=== PATIENT | female | born 1935 | race Caucasian/White ===

== ENCOUNTER 2017-07-31 21:33 | Emergency (ER) | payer MEDICARE, OTHER ==
[~2017-07-31] VITALS: Ht 154.9 cm; Wt 69.4 kg
[~2017-07-31 21:33] MED LIST: ACIDOPHILUS1 EAC4 PO; ALPHAGAN P10 ML OP; AMBIEN PO; ASPIRIN325 PO; B COMPLEX1 EACH PO; CALCIUM AND MA1 EACH PO; CATAPRES; CATAPRES-TTS 10.1 MG TD; CLONIDINE0.1 PO; COMBIGAN EYE DR10 ML OPHTHALMIC; COQ-10100 MG PO; DIOVAN320 MG PO; FOLIC ACID1 MG PO; IMDUR 30 MG TAB30 M1 PO; IMDUR 60 MG TAB60 M1 PO; INVOKANA300 MG PO; LANTUS100 UNIT/M SUBQ; LASIX 20 MG TAB20 MG PO; LASIX 40 MG TAB40 M2 PO; LEVOFLOXACIN750 MG PO; LIPITOR 20 MG T20 M1 PO; LIPITOR10 MG PO; MECLIZINE HCL25 M1 PO; MULTIVITAMINS PO; NASACORT10.8 ML NASAL; NASONEX17 GM NASAL; NASONEX17 GM NS; NITROQUICK0.4 MG SL; NITROSTAT0.4 M1 PO; NORVASC 5 MG TAB5 MG PO; NOVOLOG100 UNIT/1 SUBQ; OSELB75 PO; PATADAY2.5 ML OPHTHALMIC; PLAVIX 75 MG TA75 MG PO; PROAIR HFA8.5 GM INH; REISHI MUSHROOM PO; SINGULAIR 10 MG10 M1 PO; TESSALON PERLE100 MG PO; TOPROL XL50 MG PO; XALATAN2.5 ML OP; XALATAN2.5 ML OPHTHALMIC; ZOCOR80 MG PO; ZYRTEC10 M2 PO; ZYRTEC10 MG PO
[2017-07-31] MEDS ORDERED: CARVEDILOL12.5 MG (21:43)
[2017-07-31] MEDS ORDERED: ASPIR 8181 MG (21:52)
[2017-07-31] MEDS ORDERED: POTASSIUM20 (21:53)
[2017-07-31] MEDS ORDERED: FLONASE 0.05%50 MCG (21:54)
[2017-07-31] MEDS ORDERED: FOSAMAX 70 MG T70 MG (21:56)
[2017-07-31] MEDS ORDERED: CRESTOR20 MG (21:57)
[2017-07-31] MEDS ORDERED: HYDROCODONE-AP1 EAC6 PO (22:42)
[2017-07-31 23:04] VITALS: BP 164/71
== END 2017-07-31 23:06 | disposition home or self-care (01) ==
LOC: M.ERS 21:33
DX: S99.921A Unspecified injury of right foot, initial encounter (principal); E11.9 Type 2 diabetes mellitus without complications; I25.2 Old myocardial infarction; M19.90 Unspecified osteoarthritis, unspecified site; I11.0 Hypertensive heart disease with heart failure; I50.9 Heart failure, unspecified; Z95.1 Presence of aortocoronary bypass graft; X58.XXXA Exposure to other specified factors, initial encounter; Y93.89 Activity, other specified; Y92.89 Other specified places as the place of occurrence of the external cause; Y99.8 Other external cause status

== ENCOUNTER 2018-07-02 18:49 | Inpatient (IN) | payer MEDICARE, OTHER ==
[~2018-07-02] VITALS: Ht 154.9 cm; Wt 64.4 kg
--- NOTE | ~2018-07-02 | CON ---
[address] [address] CONSULTATION Name: JAH MEEHAN Room: [address] IN M.R.#: [id number] Admission: 07/02/18 Attend Phys: Clyde Thibodeaux MD Discharge: Date of : 35 Report #: [id number] THIS REPORT FOR: //name// CC: Clyde Morales jhony DATE OF SERVICE: 07/18/2018 CONSULTATION: Infectious diseases. The patient is an 83-year-old white female admitted to [facility] on 07/02/2018 complaining of fever and chest pain. She was noted to have a temperature of 38.2 and pyuria. It is notable that the patient had just been discharged the day previous after his being in [facility] for 4 days for "kidney damage." The patient was discharged, developed a chest pain and was admitted. After admission, the patient was diagnosed with urinary tract infection, aspiration pneumonia that went into ARDS. The patient had a non-ST elevation myocardial infarction with shock. After coming to the hospital, the patient's medical condition deteriorated to the point where she required intubation for mechanical ventilation on 07/08/2018. Dialysis with CRRT was initiated. The patient was noted to be in brynn shock. She had been on Zosyn from the day of admission, 07/02/2018 until the day of her deterioration, 07/08/2018. Therapy was then changed to cefepime plus Flagyl and she has been on that medication since 07/08/2018. The patient also was on Zyvox from 07/08/2018 to 07/13/2018. Infectious disease consultation was requested now to recommend further antibiotic therapy if necessary. PAST MEDICAL HISTORY: Significant for diabetes with hypertension, coronary artery disease, congestive heart failure. PAST SURGICAL HISTORY: The patient has had coronary artery bypass grafting and has a pacemaker. ALLERGIES: THE PATIENT'S CHART NOTES ALLERGY TO AZITHROMYCIN AND SULFA. MEDICATION RECONCILIATION: The patient's current medication list is as follows: Potassium chloride 40 mEq q.2h. p.o. p.r.n., ondansetron 4 mg q. 6 IV p.r.n. nausea, metoclopramide 10 mg q. 8 IV push, carvedilol 3.125 mg b.i.d., metronidazole 500 mg IV t.i.d., aspirin 81 mg p.o. daily, amiodarone 400 mg p.o. b.i.d., pantoprazole 40 mg IV b.i.d., cefepime 1 g IV b.i.d.; magnesium, phosphorus and potassium p.r.n. her blood levels. The patient is on sliding scale insulin. The patient currently is on norepinephrine drip, fentanyl drip and propofol drip. She receives ipratropium, albuterol aerosol 3 mL [place] [address] CONSULTATION Name: JAH MEEHAN Room: [address]#: [id number] Admission: 07/02/18 Attend Phys: Clyde Thibodeaux MD Discharge: Date of : 35 Report #: [id number] SOCIAL HISTORY: The patient is . No history of tobacco, alcohol nor drugs. REVIEW OF SYSTEMS: Unavailable as the patient is sedated on a ventilator. PHYSICAL EXAMINATION: GENERAL: The patient appears her stated age, sedated and not responsive, but appearing comfortable, not in any distress. VITAL SIGNS: Show the patient has been afebrile throughout this hospitalization. SKIN: Somewhat sallow, but without rash, lesion or exanthem. HEENT: Shows some wasting in the temporal area. Pupils are equal and reactive, in mid position. NECK: Has no adenopathy. Endotracheal and nasogastric tubes appear to be in position. HEART: Heart sounds S1, S2, without murmur. CHEST: Breath sounds are clear to anterior auscultation. A sternotomy scar appears well healed in the midline. ABDOMEN: Belly is soft and appears somewhat distended. The patient had a fecal management system with liquid stool. EXTREMITIES: Unremarkable. LABORATORY DATA: The white count has gone from 9.8 to 19.8. The hemoglobin was 7.0, transfused and 9.0, now is back down to 7.9 with hematocrit 23%, platelets 86,000. Electrolytes are normal. BUN 54, creatinine 2.3, on dialysis. Liver function tests showed the alkaline phosphatase is nearly normal at 118. The SGOT went up to 3968 and the patient had an episode of shock around 07/08/2018, it is now down to 22. SGPT has gone from 244 to 166. The BNP is 21,152. The chest x-ray shows increasing infiltrates. In summary, we have a patient with significant comorbidities who presents with chest pain and fever. She developed myocardial infarction with probable cardiogenic shock as well as pneumonia and possible sepsis. She now is on antibiotics after 16 days. Cultures throughout this time have been negative. At this time, the patient continues to be critically ill. Her white count has just gone up. Her chest x-ray appears to have increasing infiltrates, so this does not seem to be like a propitious time to discontinue antibiotic therapy. She is on broad coverage with cefepime and Flagyl and had been on Zyvox, which would have covered MRSA. At this time, I suggest we continue the current antibiotic with cefepime and Flagyl. I would like to do a few additional diagnostic studies including a sputum culture, respiratory viral panel, influenza antigen, pneumococcal and Legionella antigen, histoplasmosis urinary antigen. [place] [address] CONSULTATION Name: SHEFALIJAHMALISSA REEDE Room: [address] IN [facility]#: [id number] Admission: 07/02/18 Attend Phys: Clyde Thibodeaux MD Discharge: Date of : 35 Report #: [id number] an HIV because of the progressive infiltrates not responding to antimicrobial therapy. I would like to look for markers of sepsis including lactate and procalcitonin. With liquid stool, I want to check a C. difficile toxin, and also check a lipase. For now, I will continue the patient on intensive antibiotic therapies as we await results of these diagnostic studies. Dr. Tarango will return after the weekend for followup infectious disease care. Thank you for this consultation. By: [id number] 1925Jonathan Muñiz MD /roberto
[~2018-07-02 18:49] MED LIST changes: +ASPIR 8181 MG PO; +CARVEDILOL12.5 MG; +CRESTOR20 MG; +FLONASE 0.05%50 MCG; +FOSAMAX 70 MG T70 MG; +HYDROCODONE-AP1 EAC6 PO; +POTASSIUM20
[2018-07-02 18:53] VITALS: BP 175/47
[2018-07-02] MEDS ORDERED: ASPIR 8181 M1 PO (19:08)
[2018-07-02] MEDS ORDERED: AMLODIPINE BESY10 MG PO (19:08)
[2018-07-02] MEDS ORDERED: CILOSTAZOL 100100 M1 PO (19:09)
[2018-07-02] MEDS ORDERED: TUMS PO (19:09)
[2018-07-02] MEDS ORDERED: IRON325 PO (19:10)
[2018-07-02] MEDS ORDERED: COMBIGAN EYE DR10 ML OPHTHALMIC (19:10)
[2018-07-02] MEDS ORDERED: FLONASE 0.05%50 MCG NASAL (19:10)
[2018-07-02] MEDS ORDERED: FOLIC ACID1 MG PO (19:11)
[2018-07-02] MEDS ORDERED: FUROSEMIDE 40 M40 M1 PO (19:11)
[2018-07-02] MEDS ORDERED: NOVOLOG100 UNIT/1 SUBQ (19:12)
[2018-07-02] MEDS ORDERED: NOVOLOG FL100 UNIT/M (19:13)
[2018-07-02] MEDS ORDERED: ATROVENT HFA14 GM INH (19:14)
[2018-07-02] MEDS ORDERED: LANTUS SUBQ (19:14)
[2018-07-02] MEDS ORDERED: LUMIGAN2.5 M1 OP (19:15)
[2018-07-02] MEDS ORDERED: SINGULAIR 10 MG10 M1 PO (19:16)
[2018-07-02] MEDS ORDERED: METOLAZONE 2.52.5 MG PO (19:16)
[2018-07-02] MEDS ORDERED: TOPROL XL100 MG PO (19:16)
[2018-07-02] MEDS ORDERED: ONDANSETRON HCL4 M2 PO (19:17)
[2018-07-02] MEDS ORDERED: NITROGLYCERIN0.4 MG SUBLING (19:17)
[2018-07-02] MEDS ORDERED: CRESTOR20 MG PO (19:18)
[2018-07-02] MEDS ORDERED: PATADAY2.5 ML OP (19:18)
[2018-07-02] MEDS ORDERED: SODIUM CHLORIDE (19:20)
[2018-07-02] MEDS ORDERED: MULTI VITAMIN1 EACH PO (19:21)
[2018-07-02] MEDS ORDERED: DIOVAN160 MG PO (19:22)
[2018-07-02] MEDS ORDERED: VITAMIN B-12500 MCG PO (19:22)
[2018-07-02] MEDS ORDERED: VITAMIN B COMPLEX PO (19:23)
[2018-07-02 19:36] LABS: ABSOLUTE BASOPHILS 0.2 thou/uL (0.0-0.2); ABSOLUTE EOSINOPHILS 0.2 thou/uL (0.0-0.7); ABSOLUTE LYMPHOCYTES 1.5 thou/uL (0.8-5.3); ABSOLUTE MONOCYTES 0.7 thou/uL (0.0-1.2); ABSOLUTE NEUTROPHILS 10.2 thou/uL (1.6-8.1); BASOPHILS 1.3 %; EOSINOPHILS 1.6 %; HEMATOCRIT 37.6 % (37.0-47.0); HEMOGLOBIN 12.8 gm/dL (12.0-15.0); LYMPHOCYTES 11.4 %; MCH 30.6 pg (26.0-34.0); MCHC 33.9 g/dL (28.0-37.0); MCV 90.2 fL (80.0-100.0); MONOCYTES 5.7 %; MPV 8.6 fl. (7.2-11.1); NUCLEATED RBCS 0 /100WBC; PLATELET COUNT* 235 thou/uL (150-400); RBC 4.17 mil/uL (4.20-5.00); RDW-CV 13.3 % (10.5-14.5); WBC 12.8 thou/uL (4.0-11.0)
[2018-07-02 19:44] LABS: ANION GAP 1 mmol/L (7-16); BUN 48 mg/dL (7-18); CALCIUM 9.6 mg/dL (8.5-10.1); CHLORIDE 103 mmol/L (98-107); CO2 28 mmol/L (21-32); CREATININE 2.1 mg/dL (0.6-1.3); GLUCOSE 182 mg/dL (70-99); POTASSIUM 3.6 mmol/L (3.5-5.1); SODIUM 132 mmol/L (136-145)
[2018-07-02 19:53] LABS: INFLUENZA A ANTIGEN None Detected (None Detect); INFLUENZA B ANTIGEN None Detected (None Detect)
[2018-07-02 19:55] LABS: APTT 27.7 Seconds (25.0-31.3); INR 0.9; PROTIME 9.7 Seconds (9.20-11.50)
[2018-07-02 19:59] LABS: URINE BILIRUBIN NEGATIVE (Negative); URINE BLOOD 1+ (Negative); URINE CLARITY HAZY; URINE COLOR YELLOW; URINE GLUCOSE-RANDOM 1+ (Negative); URINE KETONES NEGATIVE (Negative); URINE LEUKOCYTES-REFLEX TRACE (Negative); URINE NITRITE-REFLEX NEGATIVE (Negative); URINE PROTEIN 2+ (Negative); URINE UROBILINOGEN 0.2 E.U./dl (0.2-1.0)
[2018-07-02 20:03] LABS: ALBUMIN 3.6 g/dL (3.4-5.0); ALKALINE PHOSPHATASE 46 U/L (46-116); CK-MB MASS 2.5 ng/mL (<0.5-3.6); LIPASE 182 U/L (73-393); NT-PRO BRAIN NAT PEPTIDE 1933 pg/mL (<300); SGOT 19 U/L (15-37); SGPT 23 U/L (30-65); TOTAL BILIRUBIN 0.4 mg/dL (<0.1-1.0); TROPONIN-I LEVEL <0.06 ng/mL (<0.06)
[2018-07-02 20:15] LABS: CASTS None Seen /LPF (None Seen); CRYSTALS None Seen /LPF (None Seen); MUCUS 0-3 Light strn/LPF (None Seen); SQUAMOUS 4-10 Moderate /LPF (0-3); URINE RBC 3-10 Few /HPF (0-2); URINE WBC-REFLEX 6-15 Few /HPF (0-5)
[2018-07-02 21:24] VITALS: BP 179/53
[2018-07-02 22:00] VITALS: BP 157/56
[2018-07-03] VITALS (7 sets, daily range): BP systolic 123–172; BP diastolic 34–90
--- NOTE | 2018-07-03 03:12 | NUR ---
83. Y/O FEMALE ADMITTED TO ROOM 204 WITH AN ADMITTING DIAGNOSIS OF UTI, FEVER. PT IS AFEBRILE UPON ARRIVAL. VSS. TRACING SR WITH FIRTST DEGREE BLOCK ON MONITOR. PT WAS DISCHARGED ON 07/02 IN THE A.M. FOR [facility] WHERE SHE WAS ADMITTED FOR RENAL INSUFFICEINCY. REFER TO CHARTING. HOURLY ROUNDING IN PLACE FOR PT SAFETY. FALL PRECAUTIONS IN PLACE. CLWR.
--- NOTE | 2018-07-03 08:26 | NUR ---
ASSUMED CARE OF PT AT 0730. PT RESTING IN BED. PT A&0X4, DENIES ANY PAIN OR SHORTNESS OF BREATH AT THIS TIME. PT TRACING SR WITH BBB AND OCCASIONAL PAC'S ON THE YARD SPECIALIST. PT ON 2L NC SAT 94%. PT STATES SHE ONLY WEARS OXYGEN AT NIGHT AT HOME. PT UP AD SHERRILL IN ROOM. PT GOAL FOR TODAY IS TO REMAIN AFEBRILE, IV ABX AND PAIN MGMT. AM ASSESSMENT CHARTED. MEDICATIONS PER JUL. PT REPOSITIONS SELF,. HOURLY ROUNDING OBSERVED. BED IN LOW POSITION. CALL LIGHT WITHIN REACH. WILL CONTINUE PLAN OF CARE.
--- NOTE | 2018-07-03 17:30 | NUR ---
NO ACUTE CHANGES THROUGHOUT SHIFT. REFER TO CHARTING. PT SLOWLY PROGRESSING TOWARDS GOALS. PT COMPLAINED OF PAIN TO RIGHT SHOULDER. TREATED WITH PRN TYLENOL WITH PARTIAL RELIEF. PT REMAINED AFEBRILE THROUGHOUT SHIFT. PT 02 SAT 88% ON RA THIS AFTERNOON- PT PLACED ON 2L NC SAT 93%. PT DENIES ANY SHORTNESS OF BREATH. PT CONTINUES TO TRACE SR WITH BBB AND OCCASIONAL PAC'S ON THE ELECTRIC MOTORMAN. IVF. PT UP SBA TO BATHROOM. HOME MEDICATIONS RECONCILED AND RESTARTED. REFER TO EMAR. PT REPOSITIONS SELF WITH REMINDERS. HOURLY ROUNDING OBSERVED. BED IN LOW POSITION. CALL LIGHT WITHIN REACH. WILL CONTINUE PLAN OF CARE.
[2018-07-04] VITALS: BP 124/41
--- NOTE | 2018-07-04 03:09 | NUR ---
PT ALERT ORIENTED. UP TO BR WITH STAND BY ASSIST BC OF IV. TELEMETRY SHOWS SR. O2 AT 3 LITERS. INITALLY DENIED PAIN BUT LATER IN THE SHIFT STATED R SHOULDER PAIN. TYLENOL GIVEN. PT SLEEPING.
[2018-07-04 04:00] VITALS: BP 115/36
[2018-07-04 08:00] VITALS: BP 135/35
--- NOTE | 2018-07-04 10:30 | NUR ---
ASSUMED CARE OF PT AT 0730. PT RESTING IN CHAIR WAITING FOR BREAKFAST. PT A&0X4. DENIES ANY PAIN OR SHORTNESS OF BREATH AT THIS TIME. UPON ASSESSMENT, PT ON RA SAT 85%, PT PLACED ON 2L NC SAT UP TO 94%. PT STATES SHE HAD DIARRHEA EARLY THIS MORNING. NO EPISODES SINCE. WILL MONITOR CLOSELY. PT TRACING SR WITH BBB AND OCCASIONAL PAC'S ON THE PLAYROOM ATTENDANT. IVF. PT UP SBA TO BATHROOM. PT GOAL FOR TODAY IS TO BE SEEN BY NEPHROLOGY, PAIN MGMT AND REPLACE POTASSIUM AND MAGNESIUM PER ELECTROLYTE PROTOCOL AND REMAIN FREE FROM DIARRHEA. AM ASSESSMENT CHARTED. MEDICATIONS PER JUL. PT REPOSITIONS SELF WITH REMINDERS. HOURLY ROUNDING OBSERVED. BED IN LOW POSITION. CALL LIGHT WITHIN REACH. WILL CONTINUE PLAN OF CARE.
[2018-07-04 12:00] VITALS: BP 118/41
[2018-07-04 15:15] VITALS: BP 110/36
--- NOTE | 2018-07-04 17:26 | NUR ---
NO ACUTE CHANGES THROUGHOUT SHIFT. REFER TO CHARTING. PT SEEN BY NEPHROLOGY. ORDERS RECEIVED FOR RENAL ULTRASOUND, CHECK URINE RESIDUAL AND MEDICATION CHANGES. DIURETICS DC'D AT THIS TIME. PVR COMPLETED WITH LESS THAN 15ML IN BLADDER. PT CONTINUES TO RECEIVE IVF. POTASSIUM AND MAGNESIUM REPLACED PER ELECTROLYTE PROTOCOL. PT HERE AT BEDSIDE THIS AFTERNOON AND UPDATED ON CURRENT PLAN OF CARE. PT CONTINUES TO TRACE SR WITH BBB AND OCCASIONAL PVC'S ON THE STORE MERCHANDISER. ON 2L NC SAT UPPER 90'S. PT DENIES ANY SHORTNESS OF BREATH. PT COMPLAINED OF PAIN TO RIGHT SHOULDER, TREATED WITH PRN TYLENOL WITH RELIEF. PT UP SBA TO BATHROOM. MEDICATIONS PER JUL. PT REPOSITIONS SELF. HOURLY ROUNDING OBSERVED. BED IN LOW POSITION. CALL LIGHT WITHIN REACH. WILL CONTINUE PLAN OF CARE.
[2018-07-04 20:20] VITALS: BP 130/68
[2018-07-05] VITALS: BP 143/40
--- NOTE | 2018-07-05 03:46 | NUR ---
PT CARE ASSUMED AT 1930. SAT DECREASED TO 89%, TITRATED TO 6L HFNC. ALERT AND ORIENTED X4. CALL LIGHT WITHIN REACH AND BED IN LOW POSITION. SOB WITH EXERTION. PT DROPPER DOWN TO 69%, KEPT HER ON NRB MASK, RESPIRATION LABORED, INFORMED RESPITORY. PT SAID FELT COMFORTABLE TO MASK AND WANTS TO SIT ON THE MASK FOR A WHILE. C/O PAIN, MEDICATION GIVEN PER EMAR.
[2018-07-05 04:00] VITALS: BP 117/46
[2018-07-05 07:54] VITALS: BP 139/41
--- NOTE | 2018-07-05 10:58 | EKG ---
[place] [address] ELECTROCARDIOGRAM REPORT Name: JAH MEEHAN Room: [address] ADM IN M.R.#: [id number] Admission: 07/02/18 Attend Phys: Clyde Thibodeaux MD Discharge: Date of : 35 Report #: [id number] THIS REPORT FOR: //name// [facility] ED Test Date: 2018-07-02 Test Time: 18:45:37 Pat Name: JAH MEEHAN Department: Room: [facility] Gender: F Fabric Cutter: JOSE CARLOS : 1935 Requested By: Husam Sharma Order Number: [id number] MD: Jonathan Melendez Measurements Intervals [place] Rate: 83 P: 0 MI: 218 QRS: -29 QRSD: 147 T: 123 QT: 406 QTc: 477 Interpretive Statements Sinus rhythm Ventricular premature complex Borderline prolonged MI interval Left bundle branch block No previous ECG available for comparison Electronically Signed On 07-05-2018 10:58:28 RENAL TECHNICIAN by Jonathan Melendez [email or web address] <ELECTRONICALLY SIGNED> By: Jonathan Melendez MD, [facility] 07/05/18 1058 1845 1845 Jonathan Melendez MD, FACC /EPI
[2018-07-05 12:16] VITALS: BP 129/28
--- NOTE | 2018-07-05 14:28 | NUR ---
Pt is A&O. Resides at home with her . Independent with IADLS. Pt continues to assist with cooking, but has a cleaning person that comes every [address]. drives short distances, but Pt stated that he is undergoing chemo, so doesn't do a lot of driving. Pt and have a restorationist member that does most of their driving. Pt wears home o2 at [facility] provided by [facility]. Hx of , does not recall the name of the agency. Hx of skilled at [facility] Pt stated that [place] CM asked nurse to obtain therapy orders. CM faxed initial referral to [facility]. Pt stated that her dtr and JESSICA plan on moving to the area from the [facility] to live with Pt and , to assist with cares. Following.
[2018-07-05 16:00] VITALS: BP 124/50
--- NOTE | 2018-07-05 18:23 | NUR ---
PT BECAME SOA WHILE SITTING IN BED THIS AFTERNOON. PT COUGHING AND SPITTING UP SMALL AMOUNT OF SPUTUM FREQUENTLY. PT APPEARED ANXIOUS. O2 SAT 85 10L O2 HFNC. O2 TITRATED UP AND PT GUIDED THROUGH BREATHING. SAT RECOVERED INTO MID 90S AFTER SEVERAL MINUTES. PT DENIES SOA AND COUGH SINCE. LUNGS DIM THROUGHOUT. FAMILY AT BEDSIDE TODAY. PT CURRENTLY DENIES C/O. PT ABLE TO MAKE NEEDS KNOWN, CALL LIGHT IN REACH
[2018-07-05 19:00] VITALS: BP 135/49
[2018-07-06] VITALS: BP 132/48
[2018-07-06 03:50] VITALS: BP 116/49
--- NOTE | 2018-07-06 04:58 | NUR ---
PT ASSESSMENT COMPLETED CHARTED. PT HAS BREATHING HAS BECOME MORE LABORED T/O THIS SHIFT. AT APPROXIMATELY 0105 RT PLACED PT ON BIPAP, PT TAKEN OFF AT 0313 PER PT REQUEST AND PLACED ON NRB AT 15LPM WITH O2 SATS AT 91%. PT HR INCREASED AT THIS TIME AND AGAIN BECAME MORE LABORED. PT PLACED BACK ON BIPAP AT 0430. PT CURRENTLY RESTING COMFORTABLY AT THIS TIME. PT ALSO BECAME FEBRILE EARLIER IN THIS SHIFT, SALO AFEBRILE. TRACING SR-ST WITH BBB,1ST DEGREE BLOCK, PAC'S, AND PVC'S. PT C/O RIGHT SHOULDER PAIN. PRN TYLENOL GIVEN FOR PAIN AND FEVER. MUSEUM CURATOR PHYSICIAN NOTIFIED WITH NO RESPONSE. HOURLY ROUNDING FOR PT SAFETY. CLWR.
[2018-07-06 05:51] LABS: CALCIUM 8.3 mg/dL (8.5-10.1); CREATININE 2.7 mg/dL (0.6-1.3); POTASSIUM 3.2 mmol/L (3.5-5.1)
[2018-07-06 08:00] VITALS: BP 124/96
--- NOTE | 2018-07-06 09:40 | NUR ---
ASSUMED CARE OF PT AT 0730. PT RESTING IN BED. PT A&0X4, DENIES ANY PAIN AT THIS TIME. PT ON BIPAP UPON ASSESSMENT SAT 97%. PT PLACED ON 15 L HIGHFLOW NC FOR MEALS. LUNG SOUNDS DIMINISHED. DR CANADA HERE TO SEE PT. ORDERS RECEIVED FOR PULMONARY CONSULT AND ECHO TODAY. PT TRACING SR WITH BBB AND PVC'S ON THE CYBER SECURITY. PACEMAKER NOTED. PT UP SBA TO BSC. PT GOAL FOR TODAY IS STRICT I/O, TITRATE OXYGEN, PULM TO SEE PT, REPLACE POTASSIUM PER ELECTROLYTE PROTOCOL, ECHO AND REMAIN AFEBRILE. AM ASSESSMENT CHARTED. MEDICATIONS PER JUL. PT REPOSITIONS SELF. HOURLY ROUNDING OBSERVED. BED IN LOW POSITION. CALL LIGHT WITHIN REACH. WILL CONTINUE PLAN OF CARE.
--- NOTE | 2018-07-06 09:48 | EKG ---
[place] [address] ELECTROCARDIOGRAM REPORT Name: JAH MEEHAN Room: [address] ADM IN M.R.#: [id number] Admission: 07/02/18 Attend Phys: Clyde Thibodeaux MD Discharge: Date of : 35 Report #: [id number] THIS REPORT FOR: //name// [facility] Test Date: 2018-07-06 Test Time: 04:21:50 Pat Name: JAH MEEHAN Department: Room: [address] Gender: F Internet Sales Representative: MJ : 1935 Requested By: Clyde Thibodeaux Order Number: [id number] Reading MD: Presley Wong Measurements Intervals [place] Rate: 120 P: 55 [place]: 162 QRS: 44 QRSD: 148 T: 162 QT: 326 QTc: 461 Interpretive Statements Sinus tachycardia Multiple premature complexes, vent & supraven Left bundle branch block Baseline wander in lead(s) II,III,aVL,aVF,V1,V3,V5,V6 Compared to ECG 07/02/2018 18:45:37 Sinus rhythm no longer present Ventricular premature complex(es) no longer present Electronically Signed On 07-06-2018 9:48:11 OIL SPRAYING MACHINE OPERATOR by Presley Wong [email or web address] <ELECTRONICALLY SIGNED> By: Presley Wong MD, [facility] 07/06/18 0948 0 0 Presley Wong MD, [facility] /EPI
[2018-07-06 11:07] LABS: HEMATOCRIT 29.3 % (37.0-47.0); MCH 30.8 pg (26.0-34.0); MCV 90.6 fL (80.0-100.0); MPV 9.2 fl. (7.2-11.1); NUCLEATED RBCS 0 /100WBC; PLATELET COUNT* 233 thou/uL (150-400); RBC 3.24 mil/uL (4.20-5.00); RDW-CV 13.4 % (10.5-14.5); WBC 13.4 thou/uL (4.0-11.0)
[2018-07-06 11:45] LABS: ABSOLUTE LYMPHOCYTES 0.7 thou/uL (0.8-5.3); ABSOLUTE MONOCYTES 0.7 thou/uL (0.0-1.2); ABSOLUTE NEUTROPHILS 12.1 thou/uL (1.6-8.1); PLATELET ESTIMATE ADEQUATE
[2018-07-06 11:46] LABS: ANISOCYTOSIS 1+; POIKILOCYTOSIS 1+
[2018-07-06 12:03] VITALS: BP 117/36
--- NOTE | 2018-07-06 12:36 | 2DMMODE ---
[place] [address] 2 D/M-MODE ECHOCARDIOGRAM Name: JAH MEEHAN Room: [address] IN [facility]#: [id number] Admission: 07/02/18 Attend Phys: Clyde Thibodeaux, Discharge: Date of : 35 Date of Service: 07/06/18 1236 Report #: [id number] THIS REPORT FOR: //name// APPROVED REPORT Study performed: 07/06/2018 10:49:39 EXAM: Comprehensive 2D, Doppler, and color-flow Echocardiogram Patient Location: In-Patient Room #: 204 Status: routine BSA: 1.81 HR: 91 bpm BP: 124/96 mmHg Rhythm: NSR Other Information Study Quality: Good Indications Congestive Heart Failure Fever 2D Dimensions IVSd: 11.28 (7-11mm) LVOT Diam: 19.27 (18-24mm) LVDd: 46.67 mm PWd: 10.84 (7-11mm) Ascending Ao: 26.10 (22-36mm) LVDs: 29.28 (25-40mm) Aortic Root: 25.73 mm Volumes Left Atrial Volume (Systole) LA ESV Index: 23.20 mL/m2 Aortic Valve AoV Peak Dani.: 1.82 m/s AO Peak Gr.: 13.18 mmHg LVOT Max P.51 mmHg AO Mean Gr.: 7.90 mmHg LVOT Mean P.94 mmHg LVOT Max V: 0.94 m/s AO V2 VTI: 39.67 cm LVOT Mean V: 0.65 m/s RELL (VTI): 1.53 cm2 LVOT V1 VTI: 20.74 cm Mitral Valve E/A Ratio: 1.47 MV Decel. Time: 211.34 [place] [address] 2 D/M-MODE ECHOCARDIOGRAM Name: JAH MEEHAN Room: [address] IN [facility].#: [id number] Admission: 07/02/18 Attend Phys: Clyde Thibodeaux, Discharge: Date of : 35 Date of Service: 07/06/18 1236 Report #: [id number] MV E Max Dani.: 1.29 m/s MV PHT: 61.29 ms MVA (PHT): 3.59 cm2 Pulmonary Valve PV Peak Dani.: 1.30 m/s PV Peak Gr.: 6.75 mmHg Tricuspid Valve RAP Estimate: 5.00 mmHg TR Peak Gr.: 39.00 mmHg RVSP: 44.00 mmHg PA Pressure: 44.00 mmHg Left Ventricle The left ventricle is normal size. There is normal LV segmental wall motion. Paradoxical septal motion consistent with conduction abnormality. There is normal left ventricular wall thickness. Left ventricular systolic function is normal. The left ventricular ejection fraction is within the normal range. LVEF is 60-65%. The left ventricular diastolic function is normal. Right Ventricle The right ventricle is normal size. The right ventricular systolic function is normal. Pacemaker lead is present in the right ventricle. Atria The left atrium size is normal. The right atrium size is normal. Aortic Valve Mild aortic valve sclerosis. No aortic regurgitation is present. Mild aortic stenosis.mean gradient 8mmHg Mitral Valve There is mitral annular calcification. Mild to moderate mitral regurgitation. No evidence of mitral valve stenosis. Tricuspid Valve The tricuspid valve is normal in structure. Mild to moderate tricuspid regurgitation. Moderate pulmonary hypertension. Pulmonic Valve The pulmonary valve is normal in structure. Mild pulmonic regurgitation. Great Vessels The aortic root is normal in size. IVC [place] [address] 2 D/M-MODE ECHOCARDIOGRAM Name: JAH MEEHAN Room: [address] IN [facility]#: [id number] Admission: 07/02/18 Attend Phys: Clyde Thibodeaux, Discharge: Date of : 35 Date of Service: 07/06/18 1236 Report #: [id number] collapses >50% with inspiration. Pericardium There is no pericardial effusion. <Conclusion> LVEF is 60-65%. There is normal LV segmental wall motion. Paradoxical septal motion consistent with conduction abnormality. Mild aortic stenosis.mean gradient 8mmHg No aortic regurgitation is present. No evidence of mitral valve stenosis. Mild to moderate mitral regurgitation. Mild to moderate tricuspid regurgitation. Moderate pulmonary hypertension. <ELECTRONICALLY SIGNED> By: Presley Wong MD, FACC 07/06/18 1236 1236 1236 Presley Wong MD, FACC /INF
[2018-07-06 16:16] VITALS: BP 113/43
--- NOTE | 2018-07-06 17:41 | NUR ---
NO ACUTE CHANGES THROUGHOUT SHIFT. REFER TO CHARTING. PT REMAINED ON BIPAP THROUGHOUT SHIFT. PT PLACED ON HIGH FLOW NC DURING MEALS AND WHEN UP TO BSC. PT NOT PROGRESSING TOWARDS GOALS. PULM SEEN PT. ORDERS RECEIVED FOR CXR AND ABG IN AM. REFER TO RESULTS OF CXR. POTASSIUM REPLACED PER ELECTROLYTE PROTOCOL. REFER TO EMAR. PT GIVEN ONE TIME DOSE OF LASIX IVP. ECHO COMPLETED. REFER TO RESULTS. PT AND FAMILY AT BEDSIDE THROUGHOUT SHIFT. PT DENIES ANY PAIN THROUGHOUT AFTERNOON. PT CONTINUES TO TRACE SR/ST WITH PVC'S AND BBB ON THE CISCO NETWORK ARCHITECT. PT UP SBA TO BATHROOM. STRICT I/O IN PLACE. MEDICATONS PER JUL. PT REPOSITIONS SELF. HOURLY ROUNDING OBSERVED. BED IN LOW POSITION. CALL LIGHT WITHIN REACH. WILL CONTINUE PLAN OF CARE.
[2018-07-06 20:00] VITALS: BP 128/43
[2018-07-07] VITALS: BP 113/38
[2018-07-07 04:00] VITALS: BP 144/57
--- NOTE | 2018-07-07 04:54 | NUR ---
ASSUMED CARE OF PT AFTER REPORT AT 1930. PT A&OX4. VSS. PHYSICAL ASSESSMENT COMPLETED AND CHARTED. PT ON BIPAP WITH 96% [address]/BBB/PAC/PVC/AV PACED ON TELE. PT UP STANDBY TO RESTROOM. PT COMPLAINED OF CHRONIC SHOULDER PAIN-PAIN MEDS GIVEN PER JUL. PT RESTED WELL ON BED. CALL LIGHT WITHIN REACH. BED IN LOW POSITION. BED ALARM ON.
[2018-07-07 05:20] LABS: ABSOLUTE BASOPHILS 0.1 thou/uL (0.0-0.2); ABSOLUTE EOSINOPHILS 0.2 thou/uL (0.0-0.7); ABSOLUTE MONOCYTES 0.6 thou/uL (0.0-1.2); ABSOLUTE NEUTROPHILS 7.2 thou/uL (1.6-8.1); BASOPHILS 0.7 %; EOSINOPHILS 1.7 %; HEMATOCRIT 25.1 % (37.0-47.0); HEMOGLOBIN 8.7 gm/dL (12.0-15.0); LYMPHOCYTES 10.9 %; MCH 31.5 pg (26.0-34.0); MCHC 34.7 g/dL (28.0-37.0); MCV 90.8 fL (80.0-100.0); MPV 8.7 fl. (7.2-11.1); NUCLEATED RBCS 0 /100WBC; PLATELET COUNT* 221 thou/uL (150-400); POLYS 79.7 %; RBC 2.76 mil/uL (4.20-5.00); RDW-CV 13.5 % (10.5-14.5)
[2018-07-07 05:39] LABS: ALBUMIN 2.2 g/dL (3.4-5.0); CALCIUM 8.3 mg/dL (8.5-10.1); CREATININE 2.8 mg/dL (0.6-1.3); POTASSIUM 3.9 mmol/L (3.5-5.1); TOTAL BILIRUBIN 0.5 mg/dL (<0.1-1.0)
[2018-07-07 08:07] VITALS: BP 138/43
--- NOTE | 2018-07-07 09:17 | NUR ---
ASSUMED CARE OF PT THIS AM AROUND 07- BLOW UP OPERATOR IN PLACE ORDERED, TRACING ST/AV PACED WITH OCCASSIONAL PVC/PAC- UPON ASSESSMENT PT NOTED TO BE RESTING IN BED, ON BIPAP- PT A&O X4- CONTINENT OF BOWEL AND BLADDER- ASSIST X1 WITH TRANSFERS- COURSE LUNG SOUNDS, DYSPNEA NOTED ON EXERTION- VSS, 02 SAT 99% ON BIPAP- NON-PRODUCTIVE COUGH NOTED- ABD SOFT/ROUND/NON-TENDER, BS X4 QUADS- LAST BM REPORTED THIS AM- IV NOTED TO RIGHT AC INTACT, AND SL- TRACE EDEMA NOTED TO BLE- SLIGHT RIGHT HAND SWEALING NOTED- FAIR PO INTAKE NOTED THIS AM WITH BREAKFAST, BS MONITORED ORDERED, INSULIN PRESCIBED- CHRONIC RIGHT SHOULDER PAIN REPORTED 10/25 THIS AM, REPOSITIONING IN PLACE- CALL LIGHT AND PERSONAL BELONGINGS WITH IN REACH- HOURLY ROUND IN PLACE R/T SAFETY/NEEDS- PT MAKES NEEDS KNOWN- ALL NEEDS MET AT THIS TIME-WCTM
[2018-07-07 11:23] LABS: BE -2.1 mmol/L (-2 to +3); PCO2 32.2 mmHg (35.0-45.0); PO2 61.4 mmHg (75.0-100.0); pH 7.442 (7.340-7.450)
--- NOTE | 2018-07-07 11:33 | CON ---
[address] [address] CONSULTATION Name: JAH MEEHAN Room: [address] IN M.R.#: [id number] Admission: 07/02/18 Attend Phys: Clyde Thibodeaux MD Discharge: Date of : 35 Report #: [id number] THIS REPORT FOR: //name// CC: Noe Avery MD DATE OF SERVICE: 07/06/2018 ATTENDING PHYSICIAN: Noe Diop MD. INDICATION FOR CONSULTATION: Acute hypoxic respiratory failure, fluid overload versus pneumonia. CLINICAL SUMMARY: The patient is an 83-year-old female essentially a nonsmoker who smoked during high school who was admitted with chest pain and low-grade fever. She was just discharged from [facility] on 07/01/2018. She had acute kidney infection with some renal failure and had some constant chest pain at that time. Chest pain was radiating. She has a previous pacemaker and had coronary artery bypass grafting by Dr. Nacho Morin in 2011 at [facility] for coronary artery disease. The patient has a history of some congestive heart failure. Her creatinine has gone up. She has been receiving IV fluids for the last 3-4 days and had decreasing urine output. Creatinine went up from 2.1, then went up to 3.7, now is back down to 2.7 at this time. She did receive one dose of IV Lasix last night when she was on 50% BiPAP and her sats seemed to have improved. If not, she was on 12-14 liters high flow cannula. She is normally on oxygen 2 liters at night at home. She has done this for the last 4 or 5 years because of a history of obstructive sleep apnea, states she saw some in our group for it. She tried CPAP briefly for a month or two about 5 or 6 years ago. She could not tolerate it and then stopped it. She still has some loud snoring, restless sleep and some daytime hypersomnolence. I talked with Dr. Karthik Bejarano, Dr. Diop and Dr. Dorado thinking she may need dialysis if she does not improve. Chest x-ray shows some lower lobe infiltrates and CHF. PAST MEDICAL HISTORY: Multiple, she has a history of hypertension, acute on chronic kidney injury and chronic kidney disease. She had a breast biopsy in the past, I believe, was benign. Also, diabetes mellitus with peripheral vascular disease, had a pacemaker for bradycardia, coronary artery disease as noted in the past. Also, hypertension. OUTPATIENT MEDICATIONS: Include amlodipine 10 mg daily, Pletal 100 mg b.i.d. for coronary artery disease, Lasix, furosemide 40 mg p.o. daily, sliding scale insulin, Atrovent HFA 1 puff q.i.d., metolazone 2.5 mg daily, metoprolol 50 mg daily, montelukast 10 mg every bedtime and Zofran 4 mg p.o. every [address] [place] [address] CONSULTATION Name: JAH MEEHAN CASTRO Room: [address] IN ..#: [id number] Admission: 07/02/18 Attend Phys: Clyde Thibodeaux MD Discharge: Date of : 35 Report #: [id number] nausea. ALLERGIES: SHE HAS ALLERGIES OR INTOLERANCE TO SULFA, LISINOPRIL, MORPHINE AND THEN PROTONIX, WHICH GIVES HER NAUSEA. SULFA, WHICH ALSO GIVES HER NAUSEA AND TRAMADOL, WHICH GIVES HER NAUSEA. FAMILY HISTORY: Negative for premature cardiopulmonary disease. SOCIAL HISTORY: The patient is a remote smoker, smoked for 4 or 5 pack years back when she was in high school and college and then quit after that. She may have smoked a pack a week according to her and her and she is and currently lives with her who seems involved with her care. Denies any alcohol or illicit drug use. REVIEW OF SYSTEMS: A 14-point review of systems reviewed and negative except for pertinent positives noted in HPI. PHYSICAL EXAMINATION: GENERAL: An 83-year-old female on BiPAP. She can talk to me in half sentences. She seems to be more alert and awake and less dyspneic on the BiPAP. VITAL SIGNS: Blood pressure is 117/46, heart rate is 90, respirations were 16-20 and temperature is 36.9 degrees. She is 5 feet 3 inches tall, weight 81 kilograms or BMI is 34, saturation on 15 liters was 96% on 50% BiPAP 14/8 with a backup rate of 14, she is 94%. HEENT: Mucous membranes are moist. Mild increase in jugular venous pressure. CHEST: Reveals bibasilar crackles. CARDIOVASCULAR: Regular rate and rhythm without murmur, gallop or rub. Heart rate is 90. No S3 is noted. ABDOMEN: Soft, without masses or megaly. EXTREMITIES: She has some edema of her right arm greater than her left arm and her lower extremities, she has no edema. LABORATORY DATA: From 07/06/2018 shows hemoglobin is 10, white count 13,400, MCV is 90 and platelets are 233,000. Sodium is 138, potassium 3.2, being repleted, chloride is 103, anion gap 14, BUN is 37, creatinine is 2.7, which is coming down somewhat, and GFR is 17, calcium is 8.3. Anti-proBNP is initially 18,000, now 21,152. Prealbumin is low at 13.6. Echocardiogram shows pulmonary artery hypertension with PA systolic of about 57 mmHg and then an EF of 50%. Chest x-ray shows fluid overload again lower lobe infiltrates. It should be noted that those papers were from a right heart catheterization done in 2016 at [facility] on their old records that just came over here from [facility]. I do not have a recent echo on her. I do not have the sleep study she states that was done at [facility] either. IMPRESSION: [place] [address] CONSULTATION Name: JAH MEEHAN Room: [address] ADM IN .R.#: [id number] Admission: 07/02/18 Attend Phys: Clyde Thibodeaux MD Discharge: Date of : 35 Report #: [id number] 1. Dyspnea, multifactorial. 2. Fluid overload. 3. Minimal chronic obstructive pulmonary disease. 4. Urinary tract infection. 5. Coronary artery disease with previous coronary artery bypass grafting. 6. Chronic kidney disease. Again, with fluid overload. PLAN: I agree with diuresis. We will keep her on the BiPAP at night and oxygen during the day. We will see how her chest x-ray clears up. If she does not clear up, she may need dialysis. Other workup would include a noncontrast CT of the chest and then reevaluation. I do not think she needs bronchoscopy at this time. May need full PFTs and also a repeat echocardiogram at some point in time to see if she has persistent pulmonary hypertension. I think it could be related to her untreated obstructive sleep apnea. She still has loud snoring and restless sleep and takes naps during the afternoon according to her and it appears she takes 1 or 2-hour naps. Not certain whether a BiPAP machine or oral appliance or Inspire would be helpful or useful to her. Repeat evaluation may be indicated. We could also end up doing an outpatient PFTs. I do not think she has much in the way of obstructive lung disease with her nonsmoking history at least at this time. Agree with diuresis at this time. We will follow up on a chest x-ray and see how she progresses in the meantime. We will follow up with blood gas on her in the morning and make sure that is stable. Thanks again for allowing us to participate in this lady's care. We will follow up along with you while she is in the hospital. <ELECTRONICALLY SIGNED> By: Eugenio Vee MD 07/07/18 1133 1234 [id number] Boo MD /nt
[2018-07-07 12:00] VITALS: BP 127/49
[2018-07-07 16:00] VITALS: BP 123/41
--- NOTE | 2018-07-07 16:21 | NUR ---
PT CURRENTLY RESTING IN BED, EYES CLOSED; FAMILY AT SIDE- FRUIT VENDOR IN PLACE ORDERED, TRACING ST/AV PACED WITH OCCASSIONAL PVC/PAC NOTED- IV TO RIGHT FA INTACT AND SL- FAIR PO INTAKE NOTED THIS SHIFT WITH MEALS- BS MONITORED ORDERED, SSI PRESCIBED- BIPAP IN PLACE ORDERED, BREAK WITH MEALS WITH O2 AT 12L VIA HF NC-LEFT THORACENTESIS ORDERED THIS SHIFT PER PULMONARY, WITH FLUID COLLECTION TO BE SENT FOR TESTING THIS SHIFT- US REPORTS TO NOT BE ABLE TO COMPLETE TODAY; PLANNED FOR 07/08/18- US BLE ORDERED AND COMPLETED THIS SHIFT WITH RESULTS NOTED TO BE NEGATIVE FOR DVT- BLADDER SCAN COMPLETED THIS SHIFT ORDERED, PVR AT 1000 NOTED TO BE 10CC- AROUND 1430 PT NOTED TO HAVE HR FLUCTUATING 130-150 WITH LABORED BREATHING/ANXIETY NOTED-CRACKLES NOTED OT BASES- 1X 40MG DOSE OF LASIX NOTED AND GIVEN-ORDERS OBTAINED FOR XANAX 0.25MG Q6 PRN FOR ANXIETY AND GIVEN AT 1440-BREATHING TX GIVEN PRESCIBED- [place] [address], UPDATED WITH NO NEW ORDERS RECIEVIED AT THIS TIME- MEDICATION NOTED TO BE EFFECTIVE PT NOW RESTING IN BED WITH EYES CLOSED- BIPAP IN PLACE, RESP EVEN AND UN-LABORED AT THIS TIME- CALL LIGHT AND PERSONAL BELONGINGS WITH IN REACH- HOURLY ROUNDS CONTINUED R/T SAFETY/NEEDS- ALL NEEDS MET AT THIS TIME-[facility]
[2018-07-07 20:00] VITALS: BP 131/54
[2018-07-08] VITALS (18 sets, daily range): BP systolic 72–152; BP diastolic 30–96
--- NOTE | 2018-07-08 05:52 | NUR ---
ASSUMED CARE OF PT AFTER REPORT AT 1930. PT A&OX4. VSS. PHYSICAL ASSESSMENT COMPLETED AND CHARTED. PT ON BIPAP WITH 97% O2 SAT. PT TRACING ST/BBB/PVC/AV PACED ON TELE. PT COMPLAINED OF RIGHT SHOULDER PAIN-PAIN MEDS GIVEN PER MAR. FOR POSSIBLE THORACENTESIS TODAY. PT RESTED WELL ON BED. CALL LIGHT WITHIN REACH. BED IN LOW POSITION. BED ALARM ON.
[2018-07-08 06:25] LABS: PREALBUMIN 13.4 mg/dL (18.0-35.7)
[2018-07-08 06:26] LABS: ALBUMIN 2.1 g/dL (3.4-5.0); CALCIUM 8.2 mg/dL (8.5-10.1); CREATININE 2.6 mg/dL (0.6-1.3); POTASSIUM 3.1 mmol/L (3.5-5.1); TOTAL BILIRUBIN 0.6 mg/dL (<0.1-1.0); TOTAL PROTEIN 6.1 g/dL (6.4-8.2)
[2018-07-08 06:34] LABS: ABSOLUTE BASOPHILS 0.1 thou/uL (0.0-0.2); ABSOLUTE EOSINOPHILS 0.3 thou/uL (0.0-0.7); ABSOLUTE LYMPHOCYTES 1.2 thou/uL (0.8-5.3); ABSOLUTE MONOCYTES 0.6 thou/uL (0.0-1.2); ABSOLUTE NEUTROPHILS 6.9 thou/uL (1.6-8.1); BASOPHILS 1.1 %; EOSINOPHILS 3.3 %; HEMATOCRIT 25.7 % (37.0-47.0); HEMOGLOBIN 8.9 gm/dL (12.0-15.0); MCH 31.5 pg (26.0-34.0); MCHC 34.5 g/dL (28.0-37.0); MCV 91.2 fL (80.0-100.0); MONOCYTES 6.7 %; MPV 9.1 fl. (7.2-11.1); NUCLEATED RBCS 0 /100WBC; PLATELET COUNT* 261 thou/uL (150-400); POLYS 75.9 %; RBC 2.82 mil/uL (4.20-5.00); RDW-CV 13.8 % (10.5-14.5); WBC 9.1 thou/uL (4.0-11.0)
--- NOTE | 2018-07-08 09:44 | NUR ---
Spoke with , Pt doing better today, therapy to be ordered. Pt continues to plan to dc to [facility] [place] Following.
--- NOTE | 2018-07-08 10:45 | NUR ---
ASSUMED PT CARE REPORT RECEIVED FROM NURSE. PT IS AOX4 , ON BIPAP O2 SAT IS 93%. VSS. SA /TACHY ON GRADE AND CENTER MARKER. PT COMPLAINS OF CHEST PAIN LEVEL 6. NITRO GIVEN. TROP 0.37. CARDIO CONSULTED PER ORDER. EKG PERFOREMED SEE CHART. NITRO GIVEN PER PROTOCOL. PT PUT ON 15 L NC HIGH FLOW PREVIOUSLY ORDERED. IN ROOM. PT ATE BREAKFAST. NO THORACENTESIS SCHEDULED TODAY. MRSA, GRAM STAIN TO BE CULTURED. NO FEVER. LASIX GIVEN SCHEDULED. ACCUCHECK 90 NO INSULIN GIVEN. K BEING REPLACED PER PROTOCOL.WILL CONTINUE TO MONITOR PT
--- NOTE | 2018-07-08 12:43 | NUR ---
PT HAS CHEST PAIN AGAIN AT AROUND 1230. NITRO GIVEN. HEART RATE IN THE 160S. MANAGER MECHANICAL MAINTENANCE ANNETTE CONTACTED. AMNIODERONE DRIP TO BE STARTED. PT IS SYMPTOMATIC AND STATES SHE HAS CHEST PAIN METROPOLOL GIVEN, XANAX GIVEN, NITRO GIVEN. WILL CONTINUT TO MONITOR.
--- NOTE | 2018-07-08 13:30 | NUR ---
patient transferred from [facility] in acute respiratory distress (sats ~80%) on 50% bipap and increased to 100% bipap. [address] quezada, dr. tobar and dr troncoso aware. xray called to dr. tobar, orders received.
--- NOTE | 2018-07-08 13:44 | NUR ---
pt chest pain has not gotten better. pt respiratory rate was still in the 20s on 15 l high flow. xanax given. SBP 120s. HR 160s. AFIB on experimental plastics fabricator. BIPAP restarted. order received to transfer pt to ICU. amniderone bolus started see e jul. pt belongings gathered. in room amd is aware of transfer plan. pt was kept on BIPAP, transfered to ICU via bed. pt seems to be very anxious due to her chest pain which she says is in her neck. report given to LUKE Ohara in ICU.
--- NOTE | 2018-07-08 13:54 | NUR ---
MYLANTA NOT GIVEN. NOT AVAILABLE IN [facility]. PHARMACY NOTICED OF PT TRANSFER
[2018-07-08 14:24] LABS: BE -8.1 mmol/L (-2 to +3); PCO2 32.1 mmHg (35.0-45.0); PO2 97.2 mmHg (75.0-100.0); pH 7.335 (7.340-7.450)
--- NOTE | 2018-07-08 15:41 | NUR ---
patient improving. hr better controlled. denies chest pain. respiratory rate still elevated. Dr. Dolan rounded on patient. I notified cardiology nurse that heart rate still elevated >100. I messaged Dr. Diop an update on the patient as well as her elevated blood sugar. report given to brandie.
--- NOTE | 2018-07-08 16:30 | NUR ---
ASSUMED PATIENT CARE.
--- NOTE | 2018-07-08 18:30 | EKG ---
[place] [address] ELECTROCARDIOGRAM REPORT Name: JAH MEEHAN Room: [address] ADM IN M.R.#: [id number] Admission: 07/02/18 Attend Phys: Clyde Thibodeaux MD Discharge: Date of : 35 Report #: [id number] THIS REPORT FOR: //name// [facility] Test Date: 2018-07-08 Test Time: 10:23:58 Pat Name: JAH MEEHAN Department: Room: [facility] Gender: F Forklift Technician: HUI KIRBY : 1935 Requested By: Noe Diop Order Number: [id number] Felicita MD: Jonathan Melendez Measurements Intervals [place] Rate: 156 P: 91 VT: 123 QRS: -10 QRSD: 138 T: 128 QT: 289 QTc: 466 Interpretive Statements Atrial fibrillation with rapid response Nonspecific intraventricular conduction delay Compared to ECG 07/06/2018 04:21:50 Intraventricular conduction delay now present Sinus tachycardia no longer present Electronically Signed On 07-08-2018 18:30:25 PERFECT BINDER OPERATOR by Jonathan Melendez [email or web address] <ELECTRONICALLY SIGNED> By: Jonathan Melendez MD, [facility] 07/08/18 1830 1023 1023 Jonathan Melendez MD, [facility] /EPI
--- NOTE | 2018-07-08 20:13 | NUR ---
PT INTUBATED BY ED PHYSICIAN AT 1700. RESTRAINTS APPLIED AND SEDATED WITH PROPOFOL. PT CONVERTED TO NSR WHILE INTUBATING. CENTRAL LINE PLACED FOR CVP MANAGEMENT AND MEDICATION. PT STATED BEFORE INTUBATION THAT SHE WAS HAVING CHEST PAIN. CARDIOLOGY IS AWARE. AMIODARONE DRIP RUNNING. NO OTHER COMPLAINTS. HAS BEEN UPDATED.
[2018-07-08 20:57] LABS: BE -6.5 mmol/L (-2 to +3); PCO2 34.3 mmHg (35.0-45.0); PO2 98.3 mmHg (75.0-100.0); pH 7.342 (7.340-7.450)
[2018-07-09] VITALS (26 sets, daily range): BP systolic 80–152; BP diastolic 25–96
[2018-07-09 04:14] LABS: ALBUMIN 1.9 g/dL (3.4-5.0); CALCIUM 7.5 mg/dL (8.5-10.1); CREATININE 3.4 mg/dL (0.6-1.3); TOTAL BILIRUBIN 0.9 mg/dL (<0.1-1.0); TOTAL PROTEIN 5.4 g/dL (6.4-8.2)
--- NOTE | 2018-07-09 07:41 | NUR ---
PATIENT STABLE, LEVOPHED AND FENTANYL STARTED FOR BP SUPPORT AND COMFORT, ORDER RECEIVED TO KEEP MAP >60. AFEBRILE, SINUS RHYTHM ON AMIO GTT. OUTPUT OF 50ML FROM CATHETER. Q2 TURNS FOR SKIN INTEGRITY.
[2018-07-09 09:26] LABS: HEMATOCRIT 24.4 % (37.0-47.0); HEMOGLOBIN 8.1 gm/dL (12.0-15.0); MCH 30.9 pg (26.0-34.0); MCHC 33.2 g/dL (28.0-37.0); MPV 9.3 fl. (7.2-11.1); NUCLEATED RBCS 1 /100WBC; PLATELET COUNT* 232 thou/uL (150-400); RBC 2.63 mil/uL (4.20-5.00); WBC 8.3 thou/uL (4.0-11.0)
[2018-07-09 10:07] LABS: BE -9.8 mmol/L (-2 to +3); PCO2 34.3 mmHg (35.0-45.0); PO2 79.6 mmHg (75.0-100.0)
[2018-07-09 10:14] LABS: pH 7.286 (7.340-7.450)
[2018-07-09 10:50] LABS: ABSOLUTE BASOPHILS 0.1 thou/uL (0.0-0.2); ABSOLUTE LYMPHOCYTES 0.6 thou/uL (0.8-5.3); ABSOLUTE MONOCYTES 0.7 thou/uL (0.0-1.2); MACROCYTES 1+; PLATELET ESTIMATE ADEQUATE
--- NOTE | 2018-07-09 15:11 | 2DMMODE ---
[place] [address] 2 D/M-MODE ECHOCARDIOGRAM Name: JAH MEEHAN CASTRO Room: [facility] ADM IN R#: [id number] Admission: 07/02/18 Attend Phys: Clyde Thibodeaux, Discharge: Date of : 35 Date of Service: 07/09/18 1511 Report #: [id number] THIS REPORT FOR: //name// APPROVED REPORT Study performed: 07/09/2018 10:34:32 EXAM: Limited 2D Echocardiogram Patient Location: In-Patient Room #: [facility] Status: routine BSA: 1.79 HR: 75 bpm BP: 128/48 mmHg Rhythm: NSR Other Information Study Quality: Good Indications Dyspnea recheck LV function Left Ventricle The left ventricle is normal size. There is distal septal and distal anterior hypokinesis. There is normal left ventricular wall thickness. The left ventricular systolic function is normal. The left ventricular ejection fraction is within the normal range. LVEF is 55%. Right Ventricle The right ventricle is normal size. The right ventricular systolic function is normal. Pacemaker lead is present in the right ventricle. Atria The left atrium size is normal. The right atrium size is normal. Aortic Valve Mild aortic valve sclerosis. Mitral Valve There is mitral annular calcification. Prosthetic mitral valve appears normal. Tricuspid Valve [facility] [address] [place] [address] 2 D/M-MODE ECHOCARDIOGRAM Name: JAH MEEHAN Room: [facility] IN M.R.#: [id number] Admission: 07/02/18 Attend Phys: Clyde Thibodeaux, Discharge: Date of : 35 Date of Service: 07/09/181510 Report #: [id number] The tricuspid valve is normal in structure. Pulmonic Valve The pulmonary valve is normal in structure. Great Vessels The aortic root is normal in size. IVC is dilated and collapses >50% with inspiration. Pericardium There is no pericardial effusion. <Conclusion> The left ventricle is normal size. There is normal left ventricular wall thickness. The left ventricular systolic function is normal. The left ventricular ejection fraction is within the normal range. LVEF is 55%. The right ventricle is normal size. The left atrium size is normal. Mild aortic valve sclerosis. There is mitral annular calcification. The tricuspid valve is normal in structure. IVC is dilated and collapses >50% with inspiration. There is no pericardial effusion. There is distal septal and distal anterior hypokinesis. Pacemaker lead is present in the right ventricle. Prosthetic mitral valve appears normal. <ELECTRONICALLY SIGNED> By: Jonathan Melendze MD, [facility] 07/09/18 151 10 1511 Jonathan Melendez MD, FACC /INF
--- NOTE | 2018-07-09 15:29 | NUR ---
PT TRANSFERRED TO ICU AND INTUBATED LAST EVENING. REMAINS ON VENT. NO FAMILY HERE AT THIS TIME BUT AND FAMILY WERE HERE EARLIER. CASE MGT WILL CONTINUE TO FOLLOW.
--- NOTE | 2018-07-09 17:58 | NUR ---
REPORT RECEIVED FROM LUKE DEAL. ASSESSMENT CHARTED. FEBRILE AT 100.0. VENT. RESTRAINTS. FENTANYL AND PROPOFOL GTTS FOR SEDATION. LEVO GTT. AMIO GTT. OG TO LIS. SILVA. LOW URINE OUTPUT. ART LINE PLACED. TEMP DIALYSIS CATH PLACED. CRRT STARTED AROUND 1530. MEDS GIVEN. FAMILY UPDATED ON PLAN OF CARE.
[2018-07-09 20:30] LABS: HEMATOCRIT 25.7 % (37.0-47.0); HEMOGLOBIN 8.7 gm/dL (12.0-15.0); MCH 30.4 pg (26.0-34.0); MCHC 33.9 g/dL (28.0-37.0); MCV 89.9 fL (80.0-100.0); MPV 9.4 fl. (7.2-11.1); RBC 2.86 mil/uL (4.20-5.00); RDW-CV 13.8 % (10.5-14.5); WBC 14.1 thou/uL (4.0-11.0)
[2018-07-09 20:38] LABS: CALCIUM 7.5 mg/dL (8.5-10.1); CREATININE 2.7 mg/dL (0.6-1.3); MAGNESIUM 1.6 mg/dL (1.8-2.4); PHOSPHORUS* 3.5 mg/dL (2.5-4.9); POTASSIUM 4.1 mmol/L (3.5-5.1)
[2018-07-10] VITALS (7 sets, daily range): BP systolic 130–143; BP diastolic 33–59
--- NOTE | 2018-07-10 00:24 | NUR ---
CRRT MACHING MULTIPLE ERRORS, UNABLE TO CONTINUE ORDERED. CALLED DR OTT, UPDATED CRRT STOPPED. NEW ORDERS TO RESTART CRRT WITH SAME SETTINGS IN AM. WILL NOTIFY DIALYSIS STAFF TO UPDATE NEW ORDERS.
[2018-07-10 02:54] LABS: ABSOLUTE BASOPHILS 0.1 thou/uL (0.0-0.2); ABSOLUTE EOSINOPHILS 0.3 thou/uL (0.0-0.7); ABSOLUTE LYMPHOCYTES 0.8 thou/uL (0.8-5.3); ABSOLUTE MONOCYTES 0.5 thou/uL (0.0-1.2); EOSINOPHILS 2.4 %; HEMATOCRIT 25.1 % (37.0-47.0); HEMOGLOBIN 8.6 gm/dL (12.0-15.0); LYMPHOCYTES 6.5 %; MCH 30.9 pg (26.0-34.0); MCHC 34.1 g/dL (28.0-37.0); MCV 90.6 fL (80.0-100.0); MONOCYTES 3.6 %; MPV 9.5 fl. (7.2-11.1); NUCLEATED RBCS 1 /100WBC; PLATELET COUNT* 208 thou/uL (150-400); POLYS 86.5 %; RBC 2.78 mil/uL (4.20-5.00); WBC 12.7 thou/uL (4.0-11.0)
[2018-07-10 03:07] LABS: ALBUMIN 1.9 g/dL (3.4-5.0); CALCIUM 7.5 mg/dL (8.5-10.1); CREATININE 2.5 mg/dL (0.6-1.3); MAGNESIUM 1.8 mg/dL (1.8-2.4); POTASSIUM 3.7 mmol/L (3.5-5.1); TOTAL BILIRUBIN 0.8 mg/dL (<0.1-1.0); TOTAL PROTEIN 5.3 g/dL (6.4-8.2)
[2018-07-10 03:14] LABS: TROPONIN-I LEVEL 1.83 ng/mL (<0.06)
--- NOTE | 2018-07-10 03:15 | NUR ---
HEPARIN GTT AT 953UNITS/HR PER ORDER, VIA INFUSION PUMP. APTT 56.7. NO CHANGE IN INFUSION RATE AT THIS TIME, NEW APTT ORDERED FOR 07/11/18 AT 0300 PER HEPARIN GTT PROTOCOL. NO S/S ACTIVE BLEEDING NOTED AT THIS TIME.
--- NOTE | 2018-07-10 03:37 | NUR ---
SPOKE WITH DIALYSIS ANSWERING SERVICE, UPDATED NEW ORDER TO RESTART AND CONTINUE PREVIOUS ORDERED CRRT IN AM.
--- NOTE | 2018-07-10 03:53 | NUR ---
MITZI, RN ASSESSMENT, RETURNED CALL PLACED THROUGH ANSWERING SERVICE, VERFIED ORERS FOR AM CRRT TX.
[2018-07-10 03:55] LABS: PREALBUMIN 11.7 mg/dL (18.0-35.7)
[2018-07-10 06:19] LABS: pH 7.325 (7.340-7.450)
[2018-07-10 06:23] LABS: PO2 124.9 mmHg (75.0-100.0)
--- NOTE | 2018-07-10 06:33 | NUR ---
ASSUMED CARE OF PATIENT AT 0500. PATIENT STABLE ON VENT, VITALS WNL. PER PREVIOUS RN, CRRT DC'D DUE TO IT BEING CLOTTED, BAKING ASSISTANT AWARE, TO BE CONTINUED THIS MORNING. PTT RESULTS THERAPEUTIC, HEPARIN GTT TO BE INFUSING WITH NO CHANGE. PO2 PER ABG THIS AM 124.9, PROVIDER AWARE. Q2 TURNS FOR SKIN INTEGRITY.
[2018-07-10 09:19] LABS: CALCIUM 7.7 mg/dL (8.5-10.1); CREATININE 2.7 mg/dL (0.6-1.3); POTASSIUM 3.7 mmol/L (3.5-5.1)
--- NOTE | 2018-07-10 18:53 | NUR ---
CRRT NOT DONE TODAY AND WE WILL RE-EVALUATE MARTHA MORNING. WEANING LEVOPHED UNTILL 12MCG/MIN. FIO2 DCREASE TO 80%. ADDITION AMIODARONE PER CARDIOLOGY ORDER TODAY. URINE OUTPUT 520 IN DAY SHIFT.
[2018-07-11] VITALS (7 sets, daily range): BP systolic 90–152; BP diastolic 28–40
--- NOTE | 2018-07-11 06:14 | NUR ---
STABLE THROUGH THE NIGHT, ABLE TO COME DOWN ON FIO2 TO 70%, SPO2 93%. PTT 786.2 THIS AM, TITRATED HEPARIN GTT DOWN PER PROTOCOL. AFEBRILE, NOT CONVERTED TO NSR, ON AMIO GTT. 520 CC FROM SILVA. Q2 TURNS FOR SKIN INTEGRITY.
[2018-07-11 06:30] LABS: BE -7.3 mmol/L (-2 to +3); PCO2 34.5 mmHg (35.0-45.0); PO2 62.6 mmHg (75.0-100.0); pH 7.332 (7.340-7.450)
[2018-07-12 03:46] LABS: ALBUMIN 1.5 g/dL (3.4-5.0); CALCIUM 8.1 mg/dL (8.5-10.1); CREATININE 3.1 mg/dL (0.6-1.3); MAGNESIUM 1.9 mg/dL (1.8-2.4); PHOSPHORUS* 5.4 mg/dL (2.5-4.9); POTASSIUM 4.3 mmol/L (3.5-5.1)
[2018-07-12 05:00] VITALS: BP 138/37; BP 141/41
--- NOTE | 2018-07-12 06:24 | NUR ---
PATIENT ON LEVOPHED @ 4.8 MCG/MIN FOR MAP <60 SINCE 1930. ABLE TO TITRATE DOWN TO 2.8 MCG/MIN AT 0500 WITH MAP>60. VITALS STABLE OTHERWISE, AFEBRILE. 550CC URINE THIS AM. Q2 TURNS FOR SKIN INTEGRITY.
[2018-07-12 09:12] LABS: ALBUMIN 1.6 g/dL (3.4-5.0); DIRECT BILIRUBIN 0.4 mg/dL (<0.1-0.3); TOTAL BILIRUBIN 0.7 mg/dL (<0.1-1.0); TOTAL PROTEIN 3.8 g/dL (6.4-8.2)
[2018-07-12 09:25] LABS: BE -7.4 mmol/L (-2 to +3); PCO2 34.7 mmHg (35.0-45.0); PO2 70.1 mmHg (75.0-100.0); pH 7.325 (7.340-7.450)
[2018-07-12 10:01] VITALS: BP 142/28
--- NOTE | 2018-07-12 10:27 | NUR ---
Nutrition: Recommend Nepro @ goal rate 35mL/hr. See RD Reassessment form for details.
[2018-07-12 13:11] LABS: HEMATOCRIT 20.9 % (37.0-47.0); MCH 30.7 pg (26.0-34.0); MCHC 33.7 g/dL (28.0-37.0); MCV 90.9 fL (80.0-100.0); NUCLEATED RBCS 0 /100WBC; RDW-CV 14.4 % (10.5-14.5); WBC 12.9 thou/uL (4.0-11.0)
[2018-07-12 13:14] LABS: PLATELET COUNT* 165 thou/uL (150-400)
[2018-07-12 13:27] LABS: CALCIUM 7.9 mg/dL (8.5-10.1); CREATININE 2.4 mg/dL (0.6-1.3); MAGNESIUM 1.9 mg/dL (1.8-2.4); PHOSPHORUS* 4.3 mg/dL (2.5-4.9); POTASSIUM 3.8 mmol/L (3.5-5.1)
[2018-07-12 14:00] LABS: ABSOLUTE EOSINOPHILS 0.3 thou/uL (0.0-0.7); ABSOLUTE LYMPHOCYTES 0.9 thou/uL (0.8-5.3); ABSOLUTE MONOCYTES 0.3 thou/uL (0.0-1.2); ABSOLUTE NEUTROPHILS 11.5 thou/uL (1.6-8.1); PLATELET ESTIMATE ADEQUATE
[2018-07-12 15:49] LABS: BE -5.3 mmol/L (-2 to +3); PCO2 34.4 mmHg (35.0-45.0); PO2 93.7 mmHg (75.0-100.0); pH 7.371 (7.340-7.450)
--- NOTE | 2018-07-12 16:30 | NUR ---
PT REMAINS ON VENT, ON CRRT TODAY. SPOKE WITH AT BEDSIDE THIS MORNING. HE SAID HE HAS NO QUESTIONS ABOUT PLAN OF CARE, THAT DRS AND NURSES ARE KEEPING HIM UP TO DATE. PROVIDED SUPPORT TO . SCARLET MENA CONTINUE TO FOLLOW.
[2018-07-12 20:00] VITALS: BP 98/34
[2018-07-12 20:45] VITALS: BP 109/63
[2018-07-13] VITALS: BP 104/34
[2018-07-13 02:10] LABS: HEPATITIS B SURFACE AG Negative (Negative)
[2018-07-13 04:00] VITALS: BP 107/36
[2018-07-13 04:33] LABS: HEMATOCRIT 24.1 % (37.0-47.0); HEMOGLOBIN 8.2 gm/dL (12.0-15.0); MCH 31.1 pg (26.0-34.0); MCHC 34.1 g/dL (28.0-37.0); MCV 91.2 fL (80.0-100.0); MPV 9.5 fl. (7.2-11.1); NUCLEATED RBCS 1 /100WBC; PLATELET COUNT* 167 thou/uL (150-400); RBC 2.64 mil/uL (4.20-5.00); RDW-CV 14.7 % (10.5-14.5)
--- NOTE | 2018-07-13 04:40 | NUR ---
PT REMAINS STABLE ON VENT, PROPOFOL AND FENTANYL GTTS INFUSING ORDERED. VSS. TUBE FEED CURRENTLY INFUSING AT 25ML/HR DUE TO RESIDUAL OF 150ML AT 0400. COMPLETE BED BATH GIVEN, HAIR SHAMPOOED. PT HAS BEEN TURNED Q2HR THROUGHOUT THE SHIFT.
[2018-07-13 04:51] LABS: ALBUMIN 1.5 g/dL (3.4-5.0); CALCIUM 8.2 mg/dL (8.5-10.1); CREATININE 2.7 mg/dL (0.6-1.3); POTASSIUM 4.2 mmol/L (3.5-5.1); TOTAL BILIRUBIN 0.7 mg/dL (<0.1-1.0)
[2018-07-13 05:09] LABS: ABSOLUTE LYMPHOCYTES 0.6 thou/uL (0.8-5.3); ABSOLUTE MONOCYTES 0.4 thou/uL (0.0-1.2); ALBUMIN 1.5 g/dL (3.4-5.0); CALCIUM 8.3 mg/dL (8.5-10.1); CREATININE 2.7 mg/dL (0.6-1.3); PHOSPHORUS* 4.8 mg/dL (2.5-4.9); PLATELET ESTIMATE ADEQUATE; POTASSIUM 4.2 mmol/L (3.5-5.1)
[2018-07-13 05:12] LABS: PREALBUMIN 9.7 mg/dL (18.0-35.7)
[2018-07-13 05:41] LABS: BE -8.3 mmol/L (-2 to +3); PCO2 31.7 mmHg (35.0-45.0); PO2 90.7 mmHg (75.0-100.0)
--- NOTE | 2018-07-13 09:43 | EKG ---
[place] [address] ELECTROCARDIOGRAM REPORT Name: JAH MEEHAN Room: [address] ADM IN M.R.#: [id number] Admission: 07/02/18 Attend Phys: Clyde Thibodeaux MD Discharge: Date of : 35 Report #: [id number] THIS REPORT FOR: //name// [facility] Test Date: 2018-07-13 Test Time: 07:37:31 Pat Name: JAHMALISSA MEEHAN Department: Room: [address] Gender: F Supervisor Litharge: : 1935 Requested By: Mark Huynh Order Number: [id number] Felicita MD: Mark Huynh Measurements Intervals [place] Rate: 59 P: NV: 208 QRS: 6 QRSD: 152 T: 220 QT: 554 QTc: 549 Interpretive Statements Atrial-paced rhythm Left bundle branch block Compared to ECG 07/08/2018 10:23:58 Atrial fibrillation no longer present Electronically Signed On 07-13-2018 9:43:03 STAINED GLASS GLAZIER HELPER by Mark Huynh [email or web address] <ELECTRONICALLY SIGNED> By: Mark Huynh MD, [facility] 07/13/18 0943 Mark Huynh MD, FAC /EPI
--- NOTE | 2018-07-13 18:59 | NUR ---
ASSESSMENT CHARTED. AFEBRILE. VITALS STABLE. LOW URINE OUTPUT. OFF LEVO. TUBE FEEDINGS ON HOLD DUE TO HIGH RESIDUALS. PROPOFOL AND FENTANYL GTTS INFUSING. DIALYSIS TODAY. TOLERATED WELL. 2.5 LITERS REMOVED. FAMILY UPDATED ON PLAN OF CARE.
[2018-07-13 19:30] VITALS: BP 129/35
[2018-07-13 20:00] VITALS: BP 129/35
[2018-07-13 21:00] VITALS: BP 124/35
--- NOTE | 2018-07-13 22:07 | NUR ---
NO BOWEL SOUNDS HEARD BILATERALLY AFTER 5 MINUTES AUSCULTATION EACH SIDE. TUBE FEED OFF SINCE 1600 DUE TO RESIDUAL OF 250ML. CURRENT RESIDUAL 100ML. LAST DOCUMENTED BM 07/09. DR THORNTON NOTIFIED, ORDERS RECEIVED FOR KUB IN AM AND ONE TIME DOSE REGLAN, GIVEN ORDERED.
[2018-07-13 22:30] VITALS: BP 118/40
[2018-07-14] VITALS (13 sets, daily range): BP systolic 113–136; BP diastolic 33–46
--- NOTE | 2018-07-14 01:50 | NUR ---
BOWEL SOUNDS HEARD. CURRENT STOMACH CONTENT RESIDUAL 0 ML. TUBE FEED RESTARTED AT 10ML/HR. WILL TITRATE TO GOAL OF 35ML/HR TOLERATED.
[2018-07-14 04:42] LABS: ABSOLUTE LYMPHOCYTES 0.3 thou/uL (0.8-5.3); ABSOLUTE MONOCYTES 0.2 thou/uL (0.0-1.2); ABSOLUTE NEUTROPHILS 8.2 thou/uL (1.6-8.1); BASOPHILS 0.3 %; HEMATOCRIT 21.5 % (37.0-47.0); HEMOGLOBIN 7.3 gm/dL (12.0-15.0); LYMPHOCYTES 3.9 %; MCHC 33.9 g/dL (28.0-37.0); MCV 91.4 fL (80.0-100.0); MONOCYTES 2.5 %; MPV 9.7 fl. (7.2-11.1); NUCLEATED RBCS 0 /100WBC; PLATELET COUNT* 117 thou/uL (150-400); POLYS 93.3 %; RBC 2.35 mil/uL (4.20-5.00); RDW-CV 14.4 % (10.5-14.5); WBC 8.8 thou/uL (4.0-11.0)
[2018-07-14 04:44] LABS: BE -9.6 mmol/L (-2 to +3); PCO2 32.6 mmHg (35.0-45.0); PO2 81.2 mmHg (75.0-100.0); pH 7.303 (7.340-7.450)
[2018-07-14 05:01] LABS: CALCIUM 8.1 mg/dL (8.5-10.1); CREATININE 2.8 mg/dL (0.6-1.3); POTASSIUM 3.7 mmol/L (3.5-5.1); TOTAL BILIRUBIN 0.6 mg/dL (<0.1-1.0)
[2018-07-14 05:02] LABS: PREALBUMIN 12.7 mg/dL (18.0-35.7)
[2018-07-14 05:24] LABS: ALBUMIN 2.1 g/dL (3.4-5.0); CALCIUM 8.2 mg/dL (8.5-10.1); CREATININE 2.9 mg/dL (0.6-1.3); MAGNESIUM 2.2 mg/dL (1.8-2.4); PHOSPHORUS* 4.7 mg/dL (2.5-4.9); POTASSIUM 3.7 mmol/L (3.5-5.1)
--- NOTE | 2018-07-14 06:43 | NUR ---
PT REMAINS STABLE ON VENT, PROPOFOL AND FENTANYL GTTS INFUSING ORDERED. TUBE FEED TITRATED TO 25ML/HR. VSS. COMPLETE BED BATH GIVEN. PT HAS BEEN TURNED Q2H THROUGHOUT THE SHIFT.
--- NOTE | 2018-07-14 17:48 | NUR ---
Care assumed at 1700. Remains high vent settings. Very edematous. UOP 525, Albumin and lasix given today. TF turned off d/t residuals in the afternoon per report. Montrell chandler for hemodialysis by nephro.
[2018-07-15] VITALS (18 sets, daily range): BP systolic 100–147; BP diastolic 31–43
[2018-07-15 05:58] LABS: CHOLESTEROL 87 mg/dL (<200); HDL CHOLESTEROL 10 mg/dL (>40); LDL CHOLESTEROL 30 mg/dL (<100); TC:HDL 8.7 Ratio (Not establshd); TRIGLYCERIDE 237 mg/dL (<150); VLDL 47 mg/dL (<40)
[2018-07-15 05:59] LABS: SERUM ASSESSMENT Clear
[2018-07-15 06:01] LABS: ALBUMIN 2.8 g/dL (3.4-5.0); CALCIUM 8.1 mg/dL (8.5-10.1); CREATININE 3.2 mg/dL (0.6-1.3); MAGNESIUM 2.3 mg/dL (1.8-2.4); PHOSPHORUS* 4.9 mg/dL (2.5-4.9); POTASSIUM 3.1 mmol/L (3.5-5.1)
--- NOTE | 2018-07-15 06:38 | NUR ---
GASTRIC RESIDUAL 220, TUBE FEEDING STOPPED. WILL CONTINUE TO MONITOR.
--- NOTE | 2018-07-15 06:41 | NUR ---
REMAINS ON VENTILATOR, FIO2 TITRATED DOWN FROM 70% TO 60%, SAO2 =>96%, GASTRIC RESIDUALS REMAIN ELEVATED, SEE ELECTRONIC TUBE FEEDING DOCMUMENTATION FOR FURTHER DETAILS, X1 SMALL BROWN LOOSE BM, FULL BED BATH GIVEN, SMALL BLOOD TINGED SPUTUM SUCTIONED VIA INLINE ETT, AFEBRILE, SILVA PATENT TO DD 750CC DARK TEA COLORED URINE OUTPUT. CVP AND ARTERIAL LINE PRESSURE TUBING AND IVF CHANGED PER PROTOCOL. SAFETY MAINTAINED.
[2018-07-15 11:26] LABS: ABSOLUTE BASOPHILS 0.1 thou/uL (0.0-0.2); ABSOLUTE LYMPHOCYTES 0.6 thou/uL (0.8-5.3); ABSOLUTE MONOCYTES 0.7 thou/uL (0.0-1.2); ABSOLUTE NEUTROPHILS 11.1 thou/uL (1.6-8.1); EOSINOPHILS 0.1 %; LYMPHOCYTES 4.6 %; MCH 30.7 pg (26.0-34.0); MCHC 33.3 g/dL (28.0-37.0); MCV 92.3 fL (80.0-100.0); MONOCYTES 5.6 %; MPV 10.5 fl. (7.2-11.1); NUCLEATED RBCS 1 /100WBC; PLATELET COUNT* 95 thou/uL (150-400); POLYS 88.7 %; RBC 2.11 mil/uL (4.20-5.00); RDW-CV 14.9 % (10.5-14.5); WBC 12.5 thou/uL (4.0-11.0)
[2018-07-15 11:27] LABS: BE 5.3 mmol/L (-2 to +3); PCO2 34.5 mmHg (35.0-45.0); pH 7.531 (7.340-7.450)
[2018-07-15 11:30] LABS: PO2 144.7 mmHg (75.0-100.0)
[2018-07-15 11:46] LABS: HEMOGLOBIN 6.5 gm/dL (12.0-15.0)
[2018-07-15 11:47] LABS: HEMATOCRIT 19.5 % (37.0-47.0)
[2018-07-15 17:46] LABS: HEMATOCRIT 24.9 % (37.0-47.0)
[2018-07-15 17:47] LABS: HEMOGLOBIN 8.8 gm/dL (12.0-15.0)
--- NOTE | 2018-07-15 19:24 | NUR ---
PT DIALYSIS DONE AT NOON.HGB WAS 6.5 AND 1 UNIT PRBC GIVEN. POST BT HGB IS 8.8. BLOOD SUGAR AFTER DIALYSIS WAS 62 THEN D50 50ML GIVEN. FIO2 DOWN TO 45% AND FREQUENCY DECREASE TO 16. THEY WILL TRY TO WEAN PEEP MARTHA.
[2018-07-16] VITALS (14 sets, daily range): BP systolic 133–161; BP diastolic 43–73
[2018-07-16 03:44] LABS: HEMATOCRIT 26.5 % (37.0-47.0); MCH 30.6 pg (26.0-34.0); MCHC 33.8 g/dL (28.0-37.0); MCV 90.5 fL (80.0-100.0); MPV 10.4 fl. (7.2-11.1); NUCLEATED RBCS 1 /100WBC; PLATELET COUNT* 62 thou/uL (150-400); RBC 2.92 mil/uL (4.20-5.00); RDW-CV 14.6 % (10.5-14.5); WBC 6.5 thou/uL (4.0-11.0)
[2018-07-16 03:57] LABS: PREALBUMIN 22.2 mg/dL (18.0-35.7)
[2018-07-16 04:01] LABS: ABSOLUTE LYMPHOCYTES 0.8 thou/uL (0.8-5.3); ABSOLUTE MONOCYTES 0.3 thou/uL (0.0-1.2); ABSOLUTE NEUTROPHILS 5.5 thou/uL (1.6-8.1); ALBUMIN 2.7 g/dL (3.4-5.0); ANISOCYTOSIS Occasional; CALCIUM 7.6 mg/dL (8.5-10.1); METAMYELOCYTES 1 %; MYELOCYTES 1 %; PLATELET ESTIMATE DECREASED; POTASSIUM 4.1 mmol/L (3.5-5.1); TOTAL BILIRUBIN 0.7 mg/dL (<0.1-1.0); TOTAL PROTEIN 5.3 g/dL (6.4-8.2); TOXIC GRANULATION Occasional
[2018-07-16 04:02] LABS: CREATININE 2.2 mg/dL (0.6-1.3)
[2018-07-16 04:12] LABS: ALBUMIN 2.7 g/dL (3.4-5.0); CALCIUM 7.3 mg/dL (8.5-10.1); CREATININE 2.2 mg/dL (0.6-1.3); PHOSPHORUS* 3.6 mg/dL (2.5-4.9); POTASSIUM 4.2 mmol/L (3.5-5.1)
[2018-07-16 06:26] LABS: BE 0.1 mmol/L (-2 to +3); PCO2 39.2 mmHg (35.0-45.0); PO2 68.5 mmHg (75.0-100.0); pH 7.415 (7.340-7.450)
--- NOTE | 2018-07-16 06:31 | NUR ---
VITALS STABLE THROUGH THE NIGHT, AFEBRILE. BMX1. UOP 350 THIS AM, TEA COLOR, SOME SEDIMENTS. TUBE FEEDING AT 15ML/HR TILL 0400, HELD AT 0400 DUE TO HIGH RESIDUALS. Q2 TURNS FOR SKIN INTEGRITY.
--- NOTE | 2018-07-16 09:19 | NUR ---
RECIEVED ORDERS 07/08 FOR O.T. EVAL AND TX. PT. HAD A CHANGE IN MEDICAL STATUS AND WAS TRANSFERRED TO ICU. SHE HAS BEEN ON A VENT WITH PLANS OF POSSIBLE WEANING THURSDAY OR THURSDAY. O.T. HAS BEEN UNABLE TO EVALUATE PT. SINCE SHE IS MEDICALLY UNSTABLE. WILL DISCHARGE PT. FROM O.T. [place] AT THIS TIME DUE TO PT. NOT BEING APPROPRIATE. PLEASE SEND NEW O.T. EVAL ORDERS WHEN PT. IS MEDICALLY STABLE.
[2018-07-16 12:04] LABS: BE -1.7 mmol/L (-2 to +3); PCO2 32.4 mmHg (35.0-45.0); pH 7.447 (7.340-7.450)
--- NOTE | 2018-07-16 14:35 | NUR ---
Interdisciplinary Rounds: Pt continues on the vent. Weaning trial attempt was unsuccessful, this is day 7. Pt was not tolerating her TF last night, TF stopped at this time, plan to restart today. Per nurse, Pt may need a trach. Continues on temp dialysis, unsure of soccer commentator dialysis needs.
--- NOTE | 2018-07-16 15:20 | NUR ---
Attempted sedation vacation. PT moved feet on command. DEsaturated while being turned to left. Placed back on sedation. fio2 increased at that time.
--- NOTE | 2018-07-16 18:26 | NUR ---
STARTED SHIFT WITH SEDATION VACATION, PT RESPONDED TO SIMPLE COMMAND. TURNED PATIENT TO LEFT SIDE, PATIENT DID NOT TOLERATE. INCREASED FIO2 AND EVENTUALLY ABLE TO RETURN PATIENT TO BASELINE FIO2 45%. INSERTED RECTAL TUBE, PATIENT TOLERATED WELL. REFRAINED FROM TURNING PATIENT TO THE LEFT THROUGHOUT THE REST OF SHIFT. ABLE TO UPDATE AND SON WHEN AT BEDSIDE. MAIN GOAL WAS TO DECREASE PEEP, UNABLE TO CHANGE RATE THROUGHOUT SHIFT. PATIENT SHOWS NO MAJOR PROGRESSION TODAY OR CHANGE FROM BASELINE SINCE THE BEGINNING OF THE SHIFT.
[2018-07-17] VITALS (15 sets, daily range): BP systolic 107–165; BP diastolic 30–105
[2018-07-17 04:06] LABS: HEMATOCRIT 25.5 % (37.0-47.0); HEMOGLOBIN 8.8 gm/dL (12.0-15.0); MCH 31.2 pg (26.0-34.0); MCHC 34.5 g/dL (28.0-37.0); MCV 90.3 fL (80.0-100.0); MPV 11.1 fl. (7.2-11.1); NUCLEATED RBCS 2 /100WBC; PLATELET COUNT* 63 thou/uL (150-400); RBC 2.83 mil/uL (4.20-5.00); RDW-CV 14.6 % (10.5-14.5); WBC 9.8 thou/uL (4.0-11.0)
[2018-07-17 04:27] LABS: ALBUMIN 2.3 g/dL (3.4-5.0); CALCIUM 7.5 mg/dL (8.5-10.1); CREATININE 2.5 mg/dL (0.6-1.3); TOTAL BILIRUBIN 0.6 mg/dL (<0.1-1.0); TOTAL PROTEIN 4.9 g/dL (6.4-8.2)
[2018-07-17 04:35] LABS: PREALBUMIN 24.5 mg/dL (18.0-35.7)
[2018-07-17 05:55] LABS: BE -1.4 mmol/L (-2 to +3); PCO2 34.4 mmHg (35.0-45.0); PO2 68.2 mmHg (75.0-100.0); pH 7.433 (7.340-7.450)
--- NOTE | 2018-07-17 06:13 | NUR ---
VITALS STABLE THROUGH THE NIGHT. TUBE FEEDING AT 25ML/HR WITH RESIDUALS OF 70ML X2. FIO2 DOWN TO 40% WITH GOOD TOLERANCE, SPO2 >90%. UOP 460ML THIS AM, TEA COLORED. SPUTUM MEDIUM, WHITE, SOMETIMES BLOOD-TINGED. AFEBRILE. Q2 TURNS FOR SKIN INTEGRITY.
[2018-07-17 08:16] LABS: ABSOLUTE LYMPHOCYTES 0.4 thou/uL (0.8-5.3); ABSOLUTE MONOCYTES 0.2 thou/uL (0.0-1.2); ABSOLUTE NEUTROPHILS 9.2 thou/uL (1.6-8.1); TARGET CELLS 1+
[2018-07-17 08:17] LABS: HYPOCHROMASIA 2+; MICROCYTES 2+
[2018-07-17 08:18] LABS: PLATELET ESTIMATE DECREASED
--- NOTE | 2018-07-17 15:47 | CON ---
[address] [address] CONSULTATION Name: JAH MEEHAN Room: [address] IN M.R.#: [id number] Admission: 07/02/18 Attend Phys: Clyde Thibodeaux MD Discharge: Date of : 35 Report #: [id number] THIS REPORT FOR: //name// CC: Clyde Morales jhony DATE OF SERVICE: 07/04/2018 NEPHROLOGY CONSULTATION CONSULTING PHYSICIAN: Dr. Garcia. REASON FOR NEPHROLOGY CONSULTATION: Worsening of kidney function. REASON FOR ADMISSION: Chest pain and fever. HISTORY OF PRESENT ILLNESS: This is an 83-year-old female who came in just feeling very sick and she was complaining of fever and having some chest pain. The patient was found to have a creatinine of 2.1 and she states that she was recently at [facility] with a possible kidney infection and they admitted her for acute renal failure, treated her with IV fluids and then they let her go home and she felt like she was not ready to go home. This happened last that she was discharged home. She came back again with symptoms as mentioned above. Her chest pain looks like atypical in nature. NC is being ruled out by primary. Her creatinine went up from 2.1 to 2.3. She was started on IV fluids as well as her metolazone and Lasix were continued. She does take valsartan at home as well. She used to take Aleve before her admission to [facility], but she was told to stop taking it and she did so. She currently does not have any urinary problems and just does not feel good. Creatinine is 2.3 today. She has also mentioned something about her left kidney not working right based upon the imaging she had at [facility]. REVIEW OF SYSTEMS: As mentioned in the history of present illness, otherwise 10-point review of systems are negative. ALLERGIES: AZITHROMYCIN, LISINOPRIL, MORPHINE, PANTOPRAZOLE, SULFA, TRAMADOL. HOME MEDICATIONS: Include amlodipine, calcium carbonate, cilostazol, brimonidine, ferrous sulfate, fluticasone, folic acid, furosemide, insulin NovoLog, glargine, metolazone, metoprolol, montelukast, nitroglycerin, ondansetron, loratadine, rosuvastatin, multivitamin, valsartan, cyanocobalamin. 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 [address] CONSULTATION Name: JAH MEEHAN Room: [address] IN M.R.#: [id number] Admission: 07/02/18 Attend Phys: Clyde Thibodeaux MD Discharge: Date of : 35 Report #: [id number] SOCIAL HISTORY: She lives at home with her . She does not smoke or take alcohol or use illicit drugs. FAMILY HISTORY: No history of kidney disease in the family. PHYSICAL EXAMINATION: VITAL SIGNS: Blood pressure is 135/35 with pulse is 83, temperature is 36.9, respiratory rate is 18, pulse ox 93% on 3 liters oxygen by nasal cannula. GENERAL: She is awake, alert and oriented, sitting in chair. HEAD, EYES, EARS, NOSE AND THROAT: Mucous membranes are moist. NECK: There is no JVD. CHEST: Bilateral clear to auscultation. No crackles or wheezing. CARDIOVASCULAR: S1, S2 normal. No murmurs. ABDOMEN: Soft, nontender. Bowel sounds present. EXTREMITIES: There is no lower extremity edema to the lower extremities. NEUROLOGIC FUNCTION: Gross neurological function seems to be intact. PSYCHIATRIC: Mood and affect seem to be normal. LABORATORY DATA: Hemoglobin is 10.2, WBC is 12.5. Sodium is 131, potassium is 3.4, chloride is 105, creatinine is 2.2. Other labs are reviewed. IMAGING: Chest x-ray is reviewed. ASSESSMENT: 1. Elevated creatinine. This could be mild acute kidney injury on top of chronic kidney disease, stage 3 or this could be acute kidney injury or this could be the patient recovering from her recent acute kidney injury. Need to find her baseline creatinine. Creatinine is 2.3. She is on diuretics as well as ARB that can contribute to acute kidney injury. Urinalysis shows evidence of 3-10 red blood cells per high-powered field, but has squamous epithelial cells and 2+ protein and this specimen should be repeated because it is a contaminated specimen. This can be done as an outpatient or inpatient if the creatinine does not improve. 2. Hypokalemia, likely because of diuretics. Potassium is 3.2 on admission. 3. Chest pain, deemed atypical. 4. Hypertension, blood pressure is currently controlled. PLAN: 1. Continue to hold metolazone, Lasix, and losartan for now and obtain records from [facility]. 2. Check bladder scan and continue normal saline at 100 mL an hour for now and we can even slow it down if she is eating and drinking good. 3. We will replace her potassium. 4. We will also check a renal ultrasound again. [address] [address] CONSULTATION Name: JAH MEEHAN Room: [address] IN ..#: [id number] Admission: 07/02/18 Attend Phys: Clyde Thibodeaux MD Discharge: Date of : 35 Report #: [id number] Thank you for this consultation and we will continue to follow along with you. Discussed with the patient and the patient's nurse. <ELECTRONICALLY SIGNED> By: Yvette Jones MD 07/17/18 1547 [id number] Jones MD /nt
--- NOTE | 2018-07-17 19:30 | NUR ---
1930 ASSUMED CARE OF PT. PLEASE SEE DOCUMENTED ASSESSMENT. PT ABLE TO NOD YES/NO TO QUESTIONS. 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 DENIED PAIN. PT REPOSITIONED ON LEFT SIDE W/WEDGES BUT PT DID NOT TOLERATE. FIO2 DROPPED TO 88%. PT REPOSITIONED TO SEMI-FOWLERS', O2 SATS CLIMBED TO 92-93%. GOALS THIS SHIFT ARE TO: MONITOR OXYGENATION AND PROVIDED ADEQUATE OXYGENATION, SKIN CARE, PAIN MANAGEMENT, COMFORT AND REST.
[2018-07-18] VITALS (26 sets, daily range): BP systolic 118–180; BP diastolic 39–55
--- NOTE | 2018-07-18 00:30 | NUR ---
PT'S FIO2 INCREASED FROM 60% TO 70% AT THIS TIME PT'S O2 SAT AT OR AROUND 88% W/GOOD PLETHORA.
[2018-07-18 03:31] LABS: HEMOGLOBIN 7.9 gm/dL (12.0-15.0); MCH 31.1 pg (26.0-34.0); MCHC 34.4 g/dL (28.0-37.0); MCV 90.4 fL (80.0-100.0); MPV 11.6 fl. (7.2-11.1); NUCLEATED RBCS 1 /100WBC; PLATELET COUNT* 86 thou/uL (150-400); RBC 2.54 mil/uL (4.20-5.00); RDW-CV 14.6 % (10.5-14.5); WBC 19.8 thou/uL (4.0-11.0)
[2018-07-18 04:11] LABS: ALBUMIN 3.1 g/dL (3.4-5.0); CREATININE 2.3 mg/dL (0.6-1.3); POTASSIUM 3.2 mmol/L (3.5-5.1); TOTAL BILIRUBIN 0.8 mg/dL (<0.1-1.0); TOTAL PROTEIN 5.2 g/dL (6.4-8.2)
[2018-07-18 04:40] LABS: APTT 26.5 Seconds (25.0-31.3); INR 1.4; PROTIME 13.9 Seconds (9.20-11.50)
--- NOTE | 2018-07-18 06:47 | NUR ---
OUTCOME SUMMARY: MINIMAL PROGRESSION TOWARDS GOALS. PT REQUIRED TITRATION UP ON FIO2 BUT NOW FIO2 IS CURRENTLY AT 45%. ADEQUATE UOP. BUN/CR TRENDING DOWNWARD. WBC TRENDING UPWARD. TITRATED SEDATION UP (PROPOFOL) TO 35 MCG WHICH WAS EFFECTIVE AT REDUCING PT'S LABORED RESPIRATIONS. OVERALL PROGNOSIS: POOR.
[2018-07-18 10:05] LABS: ABSOLUTE MONOCYTES 1.4 thou/uL (0.0-1.2); ABSOLUTE NEUTROPHILS 17.4 thou/uL (1.6-8.1); METAMYELOCYTES 1 %; PLATELET ESTIMATE DECREASED
[2018-07-18 10:06] LABS: ANISOCYTOSIS Occasional
--- NOTE | 2018-07-18 14:12 | CON ---
[address] [address] CONSULTATION Name: JAH MEEHAN Room: [address] IN .R.#: [id number] Admission: 07/02/18 Attend Phys: Clyde Thibodeaux MD Discharge: Date of : 35 Report #: [id number] THIS REPORT FOR: //name// CC: Clyde Morales jhony DATE OF SERVICE: 07/17/2018 REASON FOR CONSULTATION: Thrombocytopenia. SUBJECTIVE: An 83-year-old female who has been evaluated after she developed thrombocytopenia. Reviewing her CBC showed that until July 13 she was having normal platelet count at 167 until in the last 4 days, her platelet count dropped to 63. The patient initially was admitted because of respiratory failure, CHF, shock and she has been treated with multiple different antibiotics including current one, which is cefepime. Per her records, the patient was exposed to heparin prior to that and she has been on Zyvox on July 12. Per nursing staff, no bleeding has been reported. REVIEW OF SYSTEMS: Unable to be obtained due to intubation. PAST MEDICAL HISTORY: Per her records, diabetes mellitus, chronic kidney disease, AFib, CHF. Hypertension. MEDICATIONS: Per admission list. ALLERGIES: SULFA, LISINOPRIL. FAMILY HISTORY: Noncontributory. SOCIAL HISTORY: She is a remote smoker. She smoked 4-5 packs when she was at high school and after that one pack per day. Denies any alcohol or drug abuse. OBJECTIVE: VITAL SIGNS: Today, temperature is 36.9, pulse is 61, respirations 16, blood pressure is 138/45, SpO2 was 98%. GENERAL: The patient was lying in bed. She was intubated. CHEST: Bibasilar crackles. HEART: Regular rate and rhythm. S1, S2 within normal limits. ABDOMEN: Soft. EXTREMITIES: Trace edema bilaterally. LABORATORY DATA: Today, WBC 9.8, hemoglobin 8.8, platelet count 63. Creatinine 2.5, ALT is 256, AST 26, alk phos is 128. IMAGING: Chest x-ray showed improved left basilar [place] [address] CONSULTATION Name: JAH MEEHAN Room: [address] IN [facility]#: [id number] Admission: 07/02/18 Attend Phys: Clyde Thibodeaux MD Discharge: Date of : 35 Report #: [id number] persistent patchy bilateral pulmonary airspace disease. Venous Doppler showed bilateral lower extremity was negative for DVT back on July 07. ASSESSMENT AND PLAN: An 83-year-old female who has been evaluated because of thrombocytopenia during her hospital stay. Other etiology is multifactorial; however, she has been exposed to multiple antibiotics in addition to her infection. The patient also had evidence of liver injury. She also had exposure to heparin. RECOMMENDATIONS: I would like to repeat her CBC with a heparin citrate to avoid any clumping. We will obtain a DIC profile, peripheral blood smear to be read by pathology. B12 and folate, serum level. At this point, if the patient continues to have no bleed, we will continue to monitor. <ELECTRONICALLY SIGNED> By: Eligio Sneed MD 07/18/18 1412 [id number] Sneed MD /nt
[2018-07-18 21:05] LABS: HEMOGLOBIN 7.6 g/dL (11.1-15.9)
[2018-07-19] VITALS (33 sets, daily range): BP systolic 101–160; BP diastolic 32–54
[2018-07-19 06:15] LABS: ABSOLUTE BASOPHILS 0.2 thou/uL (0.0-0.2); ABSOLUTE EOSINOPHILS 0.6 thou/uL (0.0-0.7); ABSOLUTE LYMPHOCYTES 1.5 thou/uL (0.8-5.3); ABSOLUTE MONOCYTES 1.7 thou/uL (0.0-1.2); ABSOLUTE NEUTROPHILS 16.1 thou/uL (1.6-8.1); BASOPHILS 1.1 %; HEMATOCRIT 25.8 % (37.0-47.0); HEMOGLOBIN 8.8 gm/dL (12.0-15.0); LYMPHOCYTES 7.5 %; MCH 30.9 pg (26.0-34.0); MCHC 34.1 g/dL (28.0-37.0); MCV 90.6 fL (80.0-100.0); MONOCYTES 8.5 %; MPV 10.5 fl. (7.2-11.1); NUCLEATED RBCS 0 /100WBC; PLATELET COUNT* 103 thou/uL (150-400); POLYS 79.9 %; RBC 2.85 mil/uL (4.20-5.00); RDW-CV 14.6 % (10.5-14.5); WBC 20.1 thou/uL (4.0-11.0)
[2018-07-19 06:37] LABS: ALBUMIN 2.6 g/dL (3.4-5.0); CALCIUM 8.1 mg/dL (8.5-10.1); POTASSIUM 3.2 mmol/L (3.5-5.1); TOTAL BILIRUBIN 0.8 mg/dL (<0.1-1.0); TOTAL PROTEIN 4.8 g/dL (6.4-8.2)
--- NOTE | 2018-07-19 10:35 | NUR ---
Nutrition: Consult for NPO. Per ICU rounds, pt is on propofol, but is responsive. CT to look for clot. Will get EEG today. James 11. Pt is fully rewarmed, from NM. Chance of getting off vent today or tomorrow. Will follow for POC, 07/20/18.
--- NOTE | 2018-07-19 10:41 | NUR ---
PATIENT SEEN BY CARE REP, DR VALDEZ, HE WANTS TO DO THE WEANING TRAIL TOMORROW FOR SHE HAS DIALYSIS AND CT ABDOMEN PLANNED TODAY. PATIENT POTASSIUM 3.2, NO REPLACEMENT TO BE ADMINISTERED PER THE CONCRETE SCULPTOR. TUBE FEEDING ON HOLD AT 1000, RESIDUAL 210MLS.
[2018-07-19 12:08] LABS: HIV-1/HIV-2 ANTIBODY Non Reactive (Non Reactive)
--- NOTE | 2018-07-19 16:00 | NUR ---
SPOKE WITH DR. VALDEZ EARLIER, HE WILL SEE HOW PT DOES WITH WEANING TRIAL TOMORROW AND THEN DISCUSS WITH ABOUT A POSSIBLE TRACH. SPOKE WITH IN THE WAITING ROOM. ANSWERED HIS QUESTIONS ABOUT HOW PATIENT WAS DOING. EXPLAINED THAT WOULD SEE HOW SHE DID TOMORROW WITH WEANING TRIAL TO DETERMINE NEXT STEPS. BRIEFLY DESCRIBED TRACH TO , HE SAID PT'S BROTHER HAS A TRACH SO HE UNDERSTANDS WHAT THAT IS. HE SAID SEVERAL TIMES, ' I GUESS I JUST DIDN'T REALIZE HOW SICK SHE WAS.' HE SAID PT SAID SHE WANTED EVERYTHING DONE WHEN SHE WAS ADMITTED, PT IS A FULL CODE. CASE MGT WILL CONTINUE TO FOLLOW.
[2018-07-20] VITALS (27 sets, daily range): BP systolic 122–182; BP diastolic 32–47
[2018-07-20 05:26] LABS: ABSOLUTE LYMPHOCYTES 1.7 thou/uL (0.8-5.3); ABSOLUTE MONOCYTES 1.6 thou/uL (0.0-1.2); BASOPHILS 0.2 %; EOSINOPHILS 5.4 %; HEMOGLOBIN 8.6 gm/dL (12.0-15.0); LYMPHOCYTES 8.8 %; MCH 30.2 pg (26.0-34.0); MCHC 33.2 g/dL (28.0-37.0); MCV 90.9 fL (80.0-100.0); MONOCYTES 8.3 %; MPV 11.6 fl. (7.2-11.1); NUCLEATED RBCS 0 /100WBC; PLATELET COUNT* 117 thou/uL (150-400); POLYS 77.3 %; RBC 2.86 mil/uL (4.20-5.00); RDW-CV 14.5 % (10.5-14.5); WBC 19.4 thou/uL (4.0-11.0)
[2018-07-20 05:35] LABS: ALBUMIN 2.5 g/dL (3.4-5.0); CREATININE 2.5 mg/dL (0.6-1.3); PHOSPHORUS* 3.8 mg/dL (2.5-4.9); POTASSIUM 3.2 mmol/L (3.5-5.1); TOTAL BILIRUBIN 0.9 mg/dL (<0.1-1.0); TOTAL PROTEIN 4.9 g/dL (6.4-8.2)
--- NOTE | 2018-07-20 10:45 | NUR ---
SPOKE WITH PULMONARY DOCTOR THIS MORNING. PT DID FAIR WITH WEANING TRIAL TODAY, TO BE REPEATED TOMORROW. IS AWARE THAT IF PT DOESN'T DO WELL IN THE NEXT 1-2 DAYS WITH WEANING TRIAL THEN WOULD NEED A TRACH. IS HOPEFUL THAT SHE WILL BE ABLE TO EXTUBATED SOON, BUT IF NOT IS AGREEABLE TO GETTING TRACH PLACED. IS PT'S DPOA, COPY OF DOCUMENT ON THE CHART.
--- NOTE | 2018-07-20 17:17 | NUR ---
PATIENT DID NOT PASS WEANING TRIAL. REMAINS SEDATED ON VENTILATOR. SEDATION CHANGED BY PULMONARY TO PRECEDEX AND FENTANYL. PATIENT RESTARTED ON TUBE FEEDING. RESIDUAL 90 WITH ADMINISTRATION AT 10 ML/HR. DID NOT INCREASE. PATIENT ASSESSMENT REMAINS OTHERWISE UNCHANGED.
[2018-07-21] VITALS (16 sets, daily range): BP systolic 150–180; BP diastolic 37–65
[2018-07-21 04:42] LABS: HEMATOCRIT 24.7 % (37.0-47.0); HEMOGLOBIN 8.3 gm/dL (12.0-15.0); MCH 30.6 pg (26.0-34.0); MCHC 33.6 g/dL (28.0-37.0); MCV 90.9 fL (80.0-100.0); MPV 11.9 fl. (7.2-11.1); NUCLEATED RBCS 0 /100WBC; PLATELET COUNT* 132 thou/uL (150-400); RBC 2.71 mil/uL (4.20-5.00); WBC 14.6 thou/uL (4.0-11.0)
[2018-07-21 05:19] LABS: ALBUMIN 2.4 g/dL (3.4-5.0); CALCIUM 8.4 mg/dL (8.5-10.1); CREATININE 2.9 mg/dL (0.6-1.3); POTASSIUM 3.2 mmol/L (3.5-5.1); TOTAL BILIRUBIN 0.9 mg/dL (<0.1-1.0)
[2018-07-21 06:51] LABS: ABSOLUTE EOSINOPHILS 0.1 thou/uL (0.0-0.7); ABSOLUTE LYMPHOCYTES 0.9 thou/uL (0.8-5.3); ABSOLUTE MONOCYTES 0.7 thou/uL (0.0-1.2); ABSOLUTE NEUTROPHILS 12.8 thou/uL (1.6-8.1); ANISOCYTOSIS 1+; LARGE PLATELETS OCCASIONAL; PLATELET ESTIMATE DECREASED; POIKILOCYTOSIS 1+; POLYCHROMASIA 1+
--- NOTE | 2018-07-21 07:14 | NUR ---
VITALS STABLE, AFEBRILE THROUGHOUT THE NIGHT. FENTANYL TITRATED DOWN TO 10MCG/HR FOR POSSIBLE WEANING TRIAL. UNABLE TO RESTART TUBE FEEDING DUE TO HIGH RESIDUALS. PATIENT THREW UP MODERATE AMOUNT OF TUBE FEEDING AROUND 0600. STILL ABLE TO MAKE LARGE AMOUNTS OF WHITE MUCUS. PATIENT NODS HEAD YES AND SHAKES HEAD NO TO QUESTIONS, FOLLOWS COMMANDS BUT TAKES EXTRA TIME. DENIES PAIN, SEEMS COMFORTABLE. Q2 TURNS FOR SKIN INTEGRITY.
[2018-07-21 09:10] LABS: BE 2.9 mmol/L (-2 to +3); PCO2 36.7 mmHg (35.0-45.0); PO2 70.7 mmHg (75.0-100.0); pH 7.478 (7.340-7.450)
--- NOTE | 2018-07-21 13:00 | NUR ---
WOUND CARE NOTE: CONSULT RECEIVED FOR AREA OF NON-BLANCHABLE PURPLE WOUND PATIENT PRESENTS WITH PURPLE DISCOLORATION TO THE RIGHT BUTTOCK AND TO THE LEFT LOWER BUTTOCK. PURPLE DISCOLORATION WHEN PALPATED IS THE SAME SURROUNDING TISSUES. NO OPENINGS NOTED TO PURPLE DISCOLORATION. PARTIAL THICKNESS BREAKDOWN ALSO NOTED TO THE SACROCOCCYGEAL REGION. PINK, MOIST WOUND BED. APPEARS TO HAVE BEEN A BLISTER THAT RUPTURED. RECOMMEND CONTINUE WITH Q2 HOUR TURNINGS-SIDE TO SIDE PREFERRABLY BARRIER OINTMENT TO COMPROMISED AREAS BID AND PRN LIMIT LAYERS OF LINEN UNDER PATIENT CONTINUE WITH SANDRA MATTRESS ENCOURAGE GOOD NUTRTION/HYDRATION ONCE ABLE
--- NOTE | 2018-07-21 16:31 | NUR ---
PT EXTUBATED EARLIER. SPOKE BRIEFLY WITH THE PT, SHE IS ABLE TO ANSWER YES AND NO QUESTIONS. AT THE BEDSIDE, HAPPY WITH THE PROGRESS PATIENT IS MAKING.
[2018-07-21 16:33] LABS: BE 0.4 mmol/L (-2 to +3); PCO2 36.6 mmHg (35.0-45.0); pH 7.442 (7.340-7.450)
[2018-07-21 16:37] LABS: PO2 52.1 mmHg (75.0-100.0)
--- NOTE | 2018-07-21 17:49 | NUR ---
PT CARE ASSUMED AFTER REPORT. ASSESSMENT COMPLETE. A PACED ON MONITOR. PT EXTUBATED THIS AM. TOLERATED WELL. O2 4L NC. REPORTS PAIN ON HER BOTTOM THAT IS RELIEVED WITH FREQUENT TURNS. 3+ EDEMA TO BL HANDS AND 2+ EDEMA TO ARMS. PT TEMP DIALYSIS CATH NOT FUNCTIONING FOR DIALYSIS TODAY PER DIALYSIS NURSE. DR ZURITA HERE TO ASSESS IT. NO PROBLEMS FOUND. PT TO HAVE DIALYSIS TOMARROW.
[2018-07-22] VITALS (16 sets, daily range): BP systolic 84–181; BP diastolic 35–139
[2018-07-22 03:53] LABS: HEMATOCRIT 24.2 % (37.0-47.0); HEMOGLOBIN 8.1 gm/dL (12.0-15.0); MCH 31.2 pg (26.0-34.0); MCHC 33.5 g/dL (28.0-37.0); MCV 93.2 fL (80.0-100.0); RBC 2.6 mil/uL (4.20-5.00); RDW-CV 15.9 % (10.5-14.5); WBC 13.7 thou/uL (4.0-11.0)
[2018-07-22 04:17] LABS: ALBUMIN 2.4 g/dL (3.4-5.0); CALCIUM 8.3 mg/dL (8.5-10.1); CREATININE 2.8 mg/dL (0.6-1.3); MAGNESIUM 1.8 mg/dL (1.8-2.4)
[2018-07-22 04:47] LABS: POTASSIUM 2.9 mmol/L (3.5-5.1)
--- NOTE | 2018-07-22 08:00 | NUR ---
VSS. THROUGH THE NIGHT PT GRADUALLY REQUIRED TITRATION TO NRB DUE TO DESATURATION. PT SHOWED NO SIGN OF DISTRESS OTHER THAN SAT'S IN MID 80'S, DENIED SOA AND RR REMAINED NORMAL. PT HAS DENIED NAUSEA. REPORTS PAIN IN BUTTOCKS INTERMITTENTLY AND REQUESTS REPOSITIONING WHICH RELIEVES HER PAIN TO A TOLERABLE LEVEL, 2/10. CRITICAL POTASSIUM CALLED TO DR HEALY, ORDERS RECEIVED AND REPLACEMENT INFUSING AT THIS TIME. PT HAS BEEN TURNED Q2HR THROUGHOUT THE NIGHT.
[2018-07-23] VITALS (14 sets, daily range): BP systolic 119–182; BP diastolic 27–64
[2018-07-23 04:19] LABS: HEMATOCRIT 26.5 % (37.0-47.0); HEMOGLOBIN 8.9 gm/dL (12.0-15.0); MCH 31.6 pg (26.0-34.0); MCHC 33.6 g/dL (28.0-37.0); MCV 93.9 fL (80.0-100.0); MPV 10.3 fl. (7.2-11.1); RBC 2.82 mil/uL (4.20-5.00); RDW-CV 16.4 % (10.5-14.5)
[2018-07-23 04:34] LABS: ALBUMIN 2.7 g/dL (3.4-5.0); CALCIUM 8.1 mg/dL (8.5-10.1); CREATININE 2.6 mg/dL (0.6-1.3); MAGNESIUM 1.9 mg/dL (1.8-2.4); TOTAL BILIRUBIN 1.3 mg/dL (<0.1-1.0); TOTAL PROTEIN 5.8 g/dL (6.4-8.2)
[2018-07-23 04:53] LABS: POTASSIUM 4.5 mmol/L (3.5-5.1)
--- NOTE | 2018-07-23 06:55 | NUR ---
Pt states she was unable to sleep; states her granddaughter from [place] will be visiting her today, and she is too excited to sleep. Pt very weak; moves R extremities better than left. 650 ml urine out for shift. Fecal tube dc'd this am; pt tolerated well. VSS. Non-productive cough overnight. Will continue to monitor.
[2018-07-23 08:09] LABS: ADENOVIRUS Negative (Negative); INFLUENZA A Negative (Negative); INFLUENZA B Negative (Negative); METAPNEUMOVIRUS Negative (Negative); PARAINFLUENZA 1 Negative (Negative); PARAINFLUENZA 2 Negative (Negative); PARAINFLUENZA 3 Negative (Negative); RHINOVIRUS Negative (Negative); RSV A Negative (Negative); RSV B Negative (Negative)
[2018-07-23 08:20] LABS: BE -2.5 mmol/L (-2 to +3); PCO2 33.6 mmHg (35.0-45.0); PO2 71.6 mmHg (75.0-100.0); pH 7.427 (7.340-7.450)
--- NOTE | 2018-07-23 14:13 | NUR ---
SPOKE WITH PT AND EARLIER. PT ALERT AND ABLE TO ANSWER ALL QUESTIONS. PT AWARE SHE WILL NEED SNF AT DISCHARGE, SAID SHE HAS BEEN AT [facility] IN THE PAST AND LOVES IT THERE, WOULD LIKE TO GO THERE FOR SNF AT DISCHARGE. CALLED [facility] AND LEFT FOR DON, FAXED INITIAL REFERRAL INFO. WILL FOLLOW UP WITH [facility] ON THURSDAY.
[2018-07-24] VITALS (19 sets, daily range): BP systolic 98–166; BP diastolic 30–58
[2018-07-24 03:05] LABS: URINE BILIRUBIN NEGATIVE (Negative); URINE BLOOD 3+ (Negative); URINE CLARITY CLEAR; URINE COLOR YELLOW; URINE GLUCOSE-RANDOM 1+ (Negative); URINE KETONES NEGATIVE (Negative); URINE LEUKOCYTES-REFLEX TRACE (Negative); URINE NITRITE-REFLEX NEGATIVE (Negative); URINE PROTEIN 3+ (Negative); URINE SPECIFIC GRAVITY 1.025 (1.005-1.030); URINE UROBILINOGEN 0.2 E.U./dl (0.2-1.0)
[2018-07-24 04:15] LABS: HEMATOCRIT 23.9 % (37.0-47.0); HEMOGLOBIN 7.9 gm/dL (12.0-15.0); MCH 30.7 pg (26.0-34.0); MCHC 32.9 g/dL (28.0-37.0); MCV 93.2 fL (80.0-100.0); MPV 10.3 fl. (7.2-11.1); RBC 2.57 mil/uL (4.20-5.00); WBC 7.3 thou/uL (4.0-11.0)
[2018-07-24 04:34] LABS: ALBUMIN 2.8 g/dL (3.4-5.0); CALCIUM 7.9 mg/dL (8.5-10.1); MAGNESIUM 2.2 mg/dL (1.8-2.4); POTASSIUM 4.5 mmol/L (3.5-5.1); TOTAL PROTEIN 5.4 g/dL (6.4-8.2); TROPONIN-I LEVEL 0.17 ng/mL (<0.06)
[2018-07-24 04:39] LABS: CREATININE 4.1 mg/dL (0.6-1.3)
--- NOTE | 2018-07-24 05:30 | NUR ---
Pt remains weak, able to commercial internship weakly bilat and raise arms barely up from bed bilat. Pt disoriented to place, time, and situation. At one point pt told this RN to "watch out or you might get killed." When RN inquired further, pt states "you've been working out on the [employer] tracks." Pt had small loose BM early this am. Called out asking to get up to commode, however pt told that she was too weak to get out of bed and would have to use bed lópez. VSS. Breath snds CTA. Will continue to monitor.
[2018-07-24 06:42] LABS: SQUAMOUS 0-3 Few /LPF (0-3)
[2018-07-24 06:43] LABS: CASTS None Seen /LPF (None Seen); CRYSTALS None Seen /LPF (None Seen); MUCUS 0-3 Light strn/LPF (None Seen); URINE RBC >20 Many /HPF (0-2); URINE WBC-REFLEX 0-5 Rare /HPF (0-5); YEAST-REFLEX Present (None Seen)
[2018-07-24 14:19] LABS: URINE BLOOD 3+ (Negative); URINE CLARITY CLOUDY; URINE COLOR YELLOW; URINE GLUCOSE-RANDOM NEGATIVE (Negative); URINE KETONES NEGATIVE (Negative); URINE NITRITE-REFLEX NEGATIVE (Negative); URINE PROTEIN 3+ (Negative); URINE SPECIFIC GRAVITY >= 1.030 (1.005-1.030); URINE UROBILINOGEN 0.2 E.U./dl (0.2-1.0)
[2018-07-24 14:21] LABS: URINE BILIRUBIN 1+ (Negative); URINE LEUKOCYTES-REFLEX 2+ (Negative)
[2018-07-24 14:22] LABS: ICTOTEST (BILI CONFIRMATORY) Negative (Negative)
[2018-07-24 14:28] LABS: SQUAMOUS 0-3 Few /LPF (0-3)
[2018-07-24 14:29] LABS: URINE RBC >20 Many /HPF (0-2); URINE WBC-REFLEX 6-15 Few /HPF (0-5)
[2018-07-24 14:30] LABS: CASTS None Seen /LPF (None Seen); CRYSTALS None Seen /LPF (None Seen); MUCUS None Seen strn/LPF (None Seen); YEAST-REFLEX Present (None Seen)
--- NOTE | 2018-07-24 18:36 | NUR ---
PATIENT UNDERGONE DIALYSIS, 2300 ML REMOVED. PATIENT REFUSED TO EAT LUNCH. ATE 2 BITES OF CHICKEN AND A MILKSHAKE FOR DINNER. PATIENT REQUESTING WATER THROUGHOUT THE DAY BUT HAVING TROUBLE DRINKING THROUGH THE STRAW. ADMINISTERED PO MEDS CRUSHED WITH PUDDING TODAY. PATIENT C/O FEELING COLD THROUGHOUT THE DAY, TEMPERATURE ELEVATED TO 99.7. PATIENT FEELS WARM TO TOUCH. OUTPUT VIA CATHETER 75 ML. PATIENT FEELING WEAK AND EXHAUSTED THROUGH THE DAY. PHYSICAL THERAPY POSTPONED UNTIL 07/25/18.
[2018-07-25] VITALS (12 sets, daily range): BP systolic 113–161; BP diastolic 30–67
[2018-07-25 06:18] LABS: HEMATOCRIT 24.4 % (37.0-47.0); HEMOGLOBIN 8.1 gm/dL (12.0-15.0); MCH 31.2 pg (26.0-34.0); MCHC 33.3 g/dL (28.0-37.0); MCV 93.7 fL (80.0-100.0); MPV 10.2 fl. (7.2-11.1); RBC 2.6 mil/uL (4.20-5.00); RDW-CV 15.6 % (10.5-14.5); WBC 10.6 thou/uL (4.0-11.0)
[2018-07-25 06:30] LABS: CALCIUM 7.7 mg/dL (8.5-10.1); CREATININE 3.5 mg/dL (0.6-1.3); POTASSIUM 4.2 mmol/L (3.5-5.1); TROPONIN-I LEVEL 0.14 ng/mL (<0.06)
--- NOTE | 2018-07-25 07:43 | NUR ---
Pt up to BSC per request twice overnight. Mod soft, unformed BMs both times including some incontinence. Pt weak, but able to stand and pivot with 2 max assist. Pt oriented to self only at beginning of shift, but oriented to place and situation (not time/date) toward end of shift. Only 25 ml urine for shift. Pt able to take pills wtih water. Will continue to monitor.
--- NOTE | 2018-07-25 17:27 | NUR ---
PATIENT PROGRESSING TOWARDS GOALS. REMAINED AOX4, SOMEWHAT FORGETFUL, BUT MORE APPROPRIATE THAN PREVIOUS SHIFT. UP IN CHAIR X3 HOURS AND WORKED WITH PHYSICAL THERAPY. EATING MORE TODAY, BUT STILL HAS POOR APPETITE. TURNED Q2H TO MAINTAIN SKIN INTEGRITY. AREA OF REDNESS PRESENT AROUND NON-BLANCHABLE DEEP TISSUE INJURY. BARRIER CREAM APPLIED. PATIENT INCONTINENT OF STOOL X2 TODAY WHILE UP IN CHAIR. 50 ML URINE OUTPUT. PRESENT TODAY, UPDATED ON PLAN OF CARE. DENIES FURTHER NEEDS FROM HOSPITAL STAFF AT THIS PRESENT TIME.
[2018-07-26] VITALS (16 sets, daily range): BP systolic 87–166; BP diastolic 21–90
[2018-07-26 04:36] LABS: HEMATOCRIT 21.6 % (37.0-47.0); HEMOGLOBIN 7.3 gm/dL (12.0-15.0); MCH 31.3 pg (26.0-34.0); MCHC 33.6 g/dL (28.0-37.0); MCV 93.1 fL (80.0-100.0); MPV 10.1 fl. (7.2-11.1); RBC 2.32 mil/uL (4.20-5.00); RDW-CV 15.3 % (10.5-14.5)
[2018-07-26 04:56] LABS: ALBUMIN 2.7 g/dL (3.4-5.0); CALCIUM 7.7 mg/dL (8.5-10.1); MAGNESIUM 2.1 mg/dL (1.8-2.4); POTASSIUM 4.1 mmol/L (3.5-5.1)
[2018-07-26 05:06] LABS: CREATININE 4.8 mg/dL (0.6-1.3)
--- NOTE | 2018-07-26 07:00 | NUR ---
PROGRESSING TOWARDS GOALS. RESTING QUIETLY WITH EYES CLOSED OFF AND ON DURING NOC, FREQUENT RE-EDUCATION USE OF CALL LIGHT, VERBALIZED UNDERSTANDING. HOLLERING OUT FOR NEEDS. ENCOURAGED PO INTAKE. REPOSITIONING Q2 AND PRN FROM LEFT TO RIGHT SIDES. BARRIER CREAM APPLIED TO COCCYX. APACED TRACING METAL FURNITURE GLAZIER, HR LOW 60'S. OXYGEN 3L PER NC, SAO2 =>95%, DENIES SOA, BED REMAINS IN LOW AND LOCKED POSITION, CALL LIGHT REMAINS IN REACH. EMOTIONAL SUPPORT PROVIDED. SAFETY MAINTAINED.
--- NOTE | 2018-07-26 10:14 | NUR ---
PATIENT ALERT AND ORIENTED X4. MOVED UPTO THE CHAIR AT 0845, UNEVENTFUL.
--- NOTE | 2018-07-26 10:30 | NUR ---
CONTINUE TO FOLLOW, MET WITH PT, SPOUSE AND JESSICA. SPOUSE STATED THEY ARE STILL INTERESTED IN PT GOING TO [facility], CALLED AND UPDATED RICH. SHE STATED THEY SHOULD HAVE A BED LATER IN THE WEEK WHEN PT READY TO DC. WILL FAX UPDATED THERAPY NOTES ONCE AVAILABLE. PT TO GET TDC TODAY. ORDER RECEIVED TO [facility]PT DIALYSIS, [facility]. SPOUSE PREFERS AN AFTERNOON TIME. AWAIT DECISION FROM [facility]. WILL FOLLOW
--- NOTE | 2018-07-26 10:56 | NUR ---
WOUND CARE NOTE: REASSESSMENT OF DISCOLORATION TO BUTTOCKS. AREA IS HEALING, MUCH IMPROVED. BELIEVE THESE ARE CONTUSIONS. RECOMMEND CONTINUING WITH CURRENT PLAN OF CARE.
--- NOTE | 2018-07-26 18:15 | NUR ---
VSS, ASSUMED CARE OF PT FROM ICU, ASSESSMENT PERFORMED AND I AGREE WITH ICU ASSESSMENTS AND FINDINGS, PT IS SR ON THE MONITOR, PT IS A&O4 BUT FORGETFUL, SHE IS UP WITH TWO, KULDEEP IN PLACE BUT URIN IS RED, BUT IS RED WITH SOME SORE, WILL FOLLOW WITH PLAN OF CARE.
[2018-07-27] VITALS: BP 182/50
[2018-07-27 04:00] VITALS: BP 179/44
[2018-07-27 05:22] LABS: HEMATOCRIT 22.1 % (37.0-47.0); HEMOGLOBIN 7.4 gm/dL (12.0-15.0)
[2018-07-27 05:51] LABS: CALCIUM 8.5 mg/dL (8.5-10.1); PHOSPHORUS* 4.5 mg/dL (2.5-4.9); POTASSIUM 3.7 mmol/L (3.5-5.1)
[2018-07-27 05:54] LABS: CREATININE 3.3 mg/dL (0.6-1.3)
--- NOTE | 2018-07-27 08:14 | NUR ---
PT IS ABLE TO COMMUNICATE HER NEEDS TO STAFF WITH MINOR DIFFICULTY; SHE IS FORGETFUL AND CONFUSED AT TIMES. CURRENT PAIN MEDICATION REGIMEN HAS BEEN ADEQUATE FOR CONTROLLING HER PAIN UP TO THIS TIME. SILVA IS PATENT. IJ LINE IS PATENT. SHE IS CURRENTLY FOLLOWING A M/W/F SCHEDULE FOR RECEIVING HEMODIALYSIS.
[2018-07-27 12:26] VITALS: BP 180/54
[2018-07-27 17:09] VITALS: BP 144/54
--- NOTE | 2018-07-27 18:55 | NUR ---
KHRIS RESTIN IN BED. POOR APPETITE BUT WILL DRINK CHOCOLATE ENSURE. VITAL SIGN STABLE. HOURKY ROUNDING COMPLETED FOR PATIENT SAFETY
[2018-07-28] VITALS: BP 153/45
--- NOTE | 2018-07-28 02:20 | NUR ---
ASSUMED CARE OF PT AT 1900. PT IS ALERT AND ORIENTED. VSS. PERRLA. PT GIVEN TYLENOL FOR PAIN IN HIP. PT IS A PACED ON THE TELEMETRY. PT IS RESTING COMFORTABLY IN BED. RESPIRATIONS ARE EVEN AND NONLABORED. WILL CONTINUE TO MONITOR PT.
[2018-07-28 04:00] VITALS: BP 171/89
[2018-07-28 04:19] LABS: CALCIUM 8.7 mg/dL (8.5-10.1); MAGNESIUM 2.1 mg/dL (1.8-2.4); POTASSIUM 4.4 mmol/L (3.5-5.1)
[2018-07-28 04:24] LABS: CREATININE 4.5 mg/dL (0.6-1.3)
--- NOTE | 2018-07-28 11:39 | NUR ---
CLARISSA spoke with Dona at [facility], they have a T-TH-Sat chair time on 2nd shift. CM contacted and confirmed that this chair time is ok with him. Awaiting for [facility] acceptance letter, plan dc within the next 1-2 days. Following.
[2018-07-28 15:55] VITALS: BP 165/40
--- NOTE | 2018-07-28 18:24 | NUR ---
PT TO UNIT FROM HD AT APPROX 1300 THIS SHIFT. PT ALERT AND ORIENTED X2. TELE TRACKIN NSR, OCCASIONALLY PACED. ALL VSS ON 2L. C/O NAUSEA AND BACK PAIN- MEDICATEDPER EMAR. PT HAS NOT VOIDED THIS SHIFT. HAS BEEN OFF OF BLOOD THINNER AND IS TO HAVE TUNNELED HD PLACED TOMORROW. EDUCATED ON SAFETY AND PLAN OF CARE. PLEASE SEE ASSESSMENT FOR ADDITIONAL INFORMATION. WILL CONTINUE TO MONITOR
[2018-07-28 23:54] VITALS: BP 168/41
--- NOTE | 2018-07-29 03:08 | NUR ---
ASSUMED CARE OF PT AT 1900. PT IS CONFUSED. NO COMPLAINTS OF PAIN. PTS BLOOD PRESSURE WAS ELEVATED AT START OF SHIFT. PT GIVEN AMIODORONE. BLOOD PRESSURE STABLE. PT IS IN SINUS RYTHM ON THE TELEMETRY. PT IS RESTING COMFORTABLY IN BED. RESPIRATIONS ARE EVEN AND NONLABORED. WILL CONTINUE TO MONITOR PT.
[2018-07-29 04:00] VITALS: BP 173/44
[2018-07-29 05:26] LABS: CALCIUM 8.8 mg/dL (8.5-10.1); MAGNESIUM 1.8 mg/dL (1.8-2.4); POTASSIUM 4.2 mmol/L (3.5-5.1)
[2018-07-29 05:33] LABS: CREATININE 3.3 mg/dL (0.6-1.3)
[2018-07-29 08:17] VITALS: BP 188/56
--- NOTE | 2018-07-29 09:20 | NUR ---
ASSUMED CARE OF PT THIS AM AROUND 07- INFANTRY OFFICER IN PLACE ORDERED, TRACING SR/BBB/1ST DEGREE- UPON ASSESSMENT PT NOTED TO BE RESTING IN BED, WATCHING TV- PT A&O X1-2 WITH NOTED CONFUSSION- INCONTINENT OF BOWEL AND BLADDER- Q [address] INDICATED- DIMINISHED LUNG SOUNDS NOTED, RESP EVEN AND UN-LABORED- VSS, O2 SAT 94% ON 2L VIA NC- ABD SOFT/ROUND/NON-TENDER, BS X4 QUADS-LAST BM REPORTED 07/28/18- SCHEDULED SENNA GIVEN THIS PRESCRIBED- RIGHT IJ, TRIPLE LUMEN NOTED INTACT AND SL, DRESSING C/D/I- RIGHT NECK TEMP DIALYSIS PORT NOTED INTACT- PT CURRENTLY NPO FOR PLANNED TUNNEL CATH PLACEMENT TODAY- BS MONITORED WTIH INSULIN HELD THIS AM R/T NPO STATUS THIS AM-PT DENIES ANY C/O PAIN/DISCOMFORT THIS AM- CALL LIGHT AND PERSONAL BELONGINGS WITH IN REACH- HOURLY ROUNDS IN PLACE R/T SAFETY/NEEDS- ALL NEEDS MET AT THIS TIME-WCTM
[2018-07-29 12:57] VITALS: BP 172/49
[2018-07-29 16:18] VITALS: BP 141/62
--- NOTE | 2018-07-29 16:24 | NUR ---
PT CURRENLTY RESTING IN BED- CARDAIC MONITOR IN PLACE ORDERED, TRACING SR/BB/1ST DEGREE; OCCASSIONALY NOTED TO BE V-PACED- RIGHT TRIPLE LUMEN IJ NOTED IN PLACE, RIGHT TEMP DIALYSIS PORT D/C'D IN WELL SHOOTER WITH PERMANENT DIALYSIS PLACED TO LEFT NECK PER ORDERED- DRESSINGS C/D/I WITH NO DRAINAGE NOTED- VSS- SET UP ASSIST WITH MEALS NOTED, FAIR PO INTAKE NOTED- ELIQUIS OKAY TO BE RESTARTED THIS EVENING PER AND - DIFLUCAN D/C'D PER ID THIS SHIFT- Q [address] INDICATED WITH BARRIOR CREAM APPLIED- BS MONITORED ORDERED, INSULIN PRESCIBED- CALL LIGHT AND PERSONAL BELONGINGS WITH IN REACH-ALL NEEDS MET AT THIS TIME-WCTM
[2018-07-29 19:00] VITALS: BP 157/43
[2018-07-30] VITALS: BP 166/41
--- NOTE | 2018-07-30 03:31 | NUR ---
ASSUMED CARE OF PT AT 1900. PT IS CONFUSED. VSS. PERRLA. NO COMPLAINTS OF PAIN. PT IS SINUS RYTHM AND SOMETIMES A PACED ON THE TELEMETRY. PT IS RESTING COMFORTABLY IN BED. RESPIRATIONS ARE EVEN AND NONLABORED. WILL CONTINUE TO MONITOR PT.
[2018-07-30 04:00] VITALS: BP 174/38
[2018-07-30 04:52] LABS: HEMOGLOBIN 7.5 gm/dL (12.0-15.0); MCH 31.9 pg (26.0-34.0); MCHC 34.2 g/dL (28.0-37.0); MCV 93.4 fL (80.0-100.0); RBC 2.35 mil/uL (4.20-5.00); RDW-CV 16.3 % (10.5-14.5); WBC 9.6 thou/uL (4.0-11.0)
[2018-07-30 05:08] LABS: CALCIUM 9.4 mg/dL (8.5-10.1); CREATININE 4.2 mg/dL (0.6-1.3); MAGNESIUM 2.1 mg/dL (1.8-2.4); POTASSIUM 4.2 mmol/L (3.5-5.1)
--- NOTE | 2018-07-30 10:20 | NUR ---
Pt to dc to [facility] tomorrow for skilled, dc orders will need to be faxed to [facility] at [phone]. Updated flowsheets need to be faxed to [facility] at [phone]. Pt to begin outpt dialysis on Thursday, updated [facility]. Nurse report number [phone]
[2018-07-30 12:33] VITALS: BP 154/92
[2018-07-30 16:32] VITALS: BP 150/40
[2018-07-30 20:00] VITALS: BP 172/60
[2018-07-31] VITALS: BP 178/48
[2018-07-31 03:30] VITALS: BP 132/48
--- NOTE | 2018-07-31 04:52 | NUR ---
PT CARE ASSUMED AT 1930. SAT MAINTAINED IN 2L NC. ALERT AND ORIENTED TO PERSON AND PLACE. CALL LIGHT WITHIN REACH AND BED IN LOW POSITION. C/O BACK PAIN, REFUSES MEDICATION. HOURLY ROUNDING DONE FOR PT SAFETY.
[2018-07-31] MEDS ORDERED: BANOPHEN25 MG PO (10:15)
[2018-07-31] MEDS ORDERED: ELIQUIS2.5 MG PO (10:15)
[2018-07-31] MEDS ORDERED: PULMICORT0.5 MG/2 M INH (10:15)
[2018-07-31] MEDS ORDERED: NEPHROCAPS SOFT1 CAP PO (10:15)
[2018-07-31] MEDS ORDERED: IMDUR 30 MG TAB30 M1 PO (10:15)
[2018-07-31] MEDS ORDERED: PEPCID20 MG PO (10:15)
[2018-07-31] MEDS ORDERED: CALCIUM ACETAT667 MG PO (10:15)
[2018-07-31] MEDS ORDERED: CYCLOBENZAPRINE10 MG PO (10:15)
[2018-07-31] MEDS ORDERED: ACIDOPHILUS1 EAC4 PO (10:15)
[2018-07-31] MEDS ORDERED: CARVEDILOL3.125 MG PO (10:15)
[2018-07-31] MEDS ORDERED: PACERONE 200 M200 M1 PO (10:15)
[2018-07-31] MEDS ORDERED: EPOGEN10000 UNIT SUBQ (10:16)
[2018-07-31 12:00] VITALS: BP 151/42
--- NOTE | 2018-07-31 13:22 | NUR ---
PT.TO BE DISCHARGED TO [facility] TODAY. NOTIFIED MELLISA/TERRANCE. SHE SET UP WC VAN WITH [facility] FOR 1500. PT.NEED O2 AT 2L. FAXED DISCHARGE ORDERS TO [facility] AT [facility] [phone]. CHART COPIED BY Toy GARCIA RN TO CALL REPORT. NOTIFIED PT.
[2018-07-31 14:54] VITALS: BP 151/42
--- NOTE | 2018-07-31 17:48 | NUR ---
ORDER RECEIVED TO DISCHARGE PATINET TO RETIREMENT AT [facility]. MED REC, MEDICATION EDUCATION, STROKE EDUCATION AND NEE DFOR FOLLOW UP APPOINTMENTS COVERED AND STATED UNDERSTOOD BY PATIENT AND SPOUSE. RIGHT TRIPLE LUMEN IJ DC'D AND TELE MONITOR REMOVED. HOURLY ROUDNING COMPLETED FOR PATIENT SAFETY. DISCHARGE TIME OF 15:45. REPORT ATTEMPTED AT [facility] 2 TIMES. REPORT GIVEN ONCE [facility] CALLED BACK. ALL QUESTION ANSWERED. PATINET WAS TRANSPOERTED VIA WHEELCHAIR BY TRANSPORTATION SERVICE.
== END 2018-07-31 15:45 | DRG 870 ==
LOC: M.ERS 18:49 → M.2W 20:18 → M.TBA-ER 20:18 → M.ICU 20:18 → M.2W 21:27 → M.ICU 07-08 13:16 → M.2W 07-26 17:20
PROVIDERS: Family Medicine; Internal Medicine; Internal Medicine Cardiovascular Disease; Internal Medicine Critical Care Medicine; Internal Medicine Infectious Disease; Internal Medicine Nephrology; Internal Medicine Pulmonary Disease; ADMIT Internal Medicine
PROC: 5A09357 Assistance with Respiratory Ventilation, Less than 24 Consecutive Hours, Continuous Positive Airway Pressure (ICD-10-PCS; principal; 2018-07-06)
PROC: 5A09357 Assistance with Respiratory Ventilation, Less than 24 Consecutive Hours, Continuous Positive Airway Pressure (ICD-10-PCS; 2018-07-07)
PROC: 5A09357 Assistance with Respiratory Ventilation, Less than 24 Consecutive Hours, Continuous Positive Airway Pressure (ICD-10-PCS; 2018-07-08)
PROC: 0BH17EZ Insertion of Endotracheal Airway into Trachea, Via Natural or Artificial Opening (ICD-10-PCS; 2018-07-08)
PROC: 02HV33Z Insertion of Infusion Device into Superior Vena Cava, Percutaneous Approach (ICD-10-PCS; 2018-07-08)
PROC: 5A1955Z Respiratory Ventilation, Greater than 96 Consecutive Hours (ICD-10-PCS; 2018-07-08)
PROC: 03HY32Z Insertion of Monitoring Device into Upper Artery, Percutaneous Approach (ICD-10-PCS; 2018-07-09)
PROC: 02HV33Z Insertion of Infusion Device into Superior Vena Cava, Percutaneous Approach (ICD-10-PCS; 2018-07-09)
PROC: B5181ZA Fluoroscopy of Superior Vena Cava using Low Osmolar Contrast, Guidance (ICD-10-PCS; 2018-07-09)
PROC: B548ZZA Ultrasonography of Superior Vena Cava, Guidance (ICD-10-PCS; 2018-07-09)
PROC: 30233N1 Transfusion of Nonautologous Red Blood Cells into Peripheral Vein, Percutaneous Approach (ICD-10-PCS; 2018-07-15)
PROC: 5A1D70Z Performance of Urinary Filtration, Intermittent, Less than 6 Hours Per Day (ICD-10-PCS; 2018-07-17)
PROC: 5A1D70Z Performance of Urinary Filtration, Intermittent, Less than 6 Hours Per Day (ICD-10-PCS; 2018-07-19)
PROC: 02PYX3Z Removal of Infusion Device from Great Vessel, External Approach (ICD-10-PCS; 2018-07-21)
PROC: 5A1D70Z Performance of Urinary Filtration, Intermittent, Less than 6 Hours Per Day (ICD-10-PCS; 2018-07-22)
PROC: 5A1D70Z Performance of Urinary Filtration, Intermittent, Less than 6 Hours Per Day (ICD-10-PCS; 2018-07-28)
PROC: B5181ZA Fluoroscopy of Superior Vena Cava using Low Osmolar Contrast, Guidance (ICD-10-PCS; 2018-07-29)
PROC: B548ZZA Ultrasonography of Superior Vena Cava, Guidance (ICD-10-PCS; 2018-07-29)
PROC: 0JH63XZ Insertion of Tunneled Vascular Access Device into Chest Subcutaneous Tissue and Fascia, Percutaneous Approach (ICD-10-PCS; 2018-07-29)
PROC: 02HV33Z Insertion of Infusion Device into Superior Vena Cava, Percutaneous Approach (ICD-10-PCS; 2018-07-29)
DX: A41.9 Sepsis, unspecified organism (principal); J69.0 Pneumonitis due to inhalation of food and vomit; I50.33 Acute on chronic diastolic (congestive) heart failure; K72.00 Acute and subacute hepatic failure without coma; N17.0 Acute kidney failure with tubular necrosis; I21.4 Non-ST elevation (NSTEMI) myocardial infarction; J96.21 Acute and chronic respiratory failure with hypoxia; T82.868A Thrombosis due to vascular prosthetic devices, implants and grafts, initial encounter; E87.1 Hypo-osmolality and hyponatremia; T82.41XA Breakdown (mechanical) of vascular dialysis catheter, initial encounter; E87.2 Acidosis; D62 Acute posthemorrhagic anemia; I13.0 Hypertensive heart and chronic kidney disease with heart failure and stage 1 through stage 4 chronic kidney disease, or unspecified chronic kidney disease; R57.9 Shock, unspecified; E44.0 Moderate protein-calorie malnutrition; B37.49 Other urogenital candidiasis; Y84.1 Kidney dialysis as the cause of abnormal reaction of the patient, or of later complication, without mention of misadventure at the time of the procedure; Y92.238 Other place in hospital as the place of occurrence of the external cause; E11.22 Type 2 diabetes mellitus with diabetic chronic kidney disease; E11.51 Type 2 diabetes mellitus with diabetic peripheral angiopathy without gangrene; N18.3 Chronic kidney disease, stage 3 (moderate); R31.9 Hematuria, unspecified; E87.6 Hypokalemia; I25.10 Atherosclerotic heart disease of native coronary artery without angina pectoris; E66.9 Obesity, unspecified; E11.65 Type 2 diabetes mellitus with hyperglycemia; N26.1 Atrophy of kidney (terminal); R33.9 Retention of urine, unspecified; D69.6 Thrombocytopenia, unspecified; I27.20 Pulmonary hypertension, unspecified; I48.0 Paroxysmal atrial fibrillation; Z79.4 Long term (current) use of insulin; Z79.899 Other long term (current) drug therapy; Z88.2 Allergy status to sulfonamides; Z88.1 Allergy status to other antibiotic agents; Z88.8 Allergy status to other drugs, medicaments and biological substances; Z88.5 Allergy status to narcotic agent; Z95.1 Presence of aortocoronary bypass graft; Z95.2 Presence of prosthetic heart valve; Z95.0 Presence of cardiac pacemaker; Z68.26 Body mass index [BMI] 26.0-26.9, adult